=== PATIENT | male | born 1995 | race Caucasian/White ===

== ENCOUNTER 2016-07-12 17:31 | Emergency (ER) | payer OTHER ==
[~2016-07-12] VITALS: Ht 167.6 cm; Wt 60.0 kg
[~2016-07-12 17:31] MED LIST: CEPH500C PO; HYDR-3498 PO; IBUP-1542 PO
[2016-07-12 17:56] VITALS: Ht 167.6 cm; Wt 60.0 kg
[2016-07-12] MEDS ORDERED: IBUP-1542 PO (18:05)
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
== END 2016-07-12 18:09 | disposition home or self-care (01) ==
LOC: E/R 17:31
DX: Z48.02 Encounter for removal of sutures (principal)
CPT/HCPCS: 99283

== ENCOUNTER 2016-11-30 19:58 | Inpatient (IN) | payer OTHER ==
[~2016-11-30] VITALS: Ht 167.6 cm; Wt 70.0 kg
[2016-11-30] MEDS ORDERED: SOD CHLORIDE 0.9% 1,000 ML IV STA ×2 (20:24→22:40)
[2016-11-30] MEDS ORDERED: MIDAZOLAM (DRIP) 50 mg/50 mL 50 ML IV STA (20:28)
--- NOTE | 2016-11-30 20:44 | RADRPT ---
PROCEDURE: CT Brain without contrast. CLINICAL INDICATION: Trauma, loss of consciousness TECHNIQUE: A CT of the brain was performed utilizing axial imaging from the skull base through the vertex without IV contrast. Multiplanar reformatted images were made. Images were reviewed on a [employer] workstation. The CTDIvol is 32.54 mGy and the DLP is 662.3 mGycm. One or more the following dose reduction techniques were utilized: Automated exposure control, adjus tment of the mA and / or kV according to patient's size, or use of iterative reconstruction techniqu e. COMPARISON: None FINDINGS: There is no intracranial hemorrhage, mass effect, or midline shift. No extra-axial fluid collection is seen. The ventricles and sulci are normal in size and configuration. The density of the brain is normal, and the king white matter differentiation appears well-preserved. The visualized paranasal sinuses and osseous structures are grossly unremarkable. IMPRESSION: 1. No evidence of acute intracranial pathology. 2. The brain is normal in appearance. RPTAT: HJES .Richard Booker MD, MD Date Time Electronically viewed and signed by .Richard Booker MD, MD on 11/30/2016 20:44 .S/
--- NOTE | 2016-11-30 20:50 | RADRPT ---
PROCEDURE: CT Cervical Spine. CLINICAL INDICATION: Fall, neck pain TECHNIQUE: A CT of the cervical spine was performed utilizing thin section axial images from the skull base through the thoracic inlet. Sagittal and coronal reformatted images were made. The CTDI vol is 18.39 mGy and the DLP is please 361.78 mGycm. One or more the following dose reduction techniques were utilized: Automated exposure control, adjus tment of the mA and / or kV according to patient's size, or use of iterative reconstruction techniqu e. COMPARISON: None. FINDINGS: There is a normal lordosis of the cervical spine. No vertebral body subluxation is seen. No fractu res are evident. The posterior elements are normally aligned. The surrounding soft tissues are nor mal in appearance. The intervertebral discs are normal in height. No significant disk bulge or pro trusion is seen. The central canal and foramina are adequately patent at all levels. The patient is intubated. Air space infiltrates are seen at bilateral lung apices IMPRESSION: Negative CT scan of the cervical spine. Air space infiltrates at bilateral lung apices. RPTAT: HJES .Richard Booker MD, MD Date Time Electronically viewed and signed by .Richard Booker MD, MD on 11/30/2016 20:49 .S/
--- NOTE | 2016-11-30 20:51 | RADRPT ---
PROCEDURE: XR Chest. CLINICAL INDICATION: Check endotracheal tube position. TECHNIQUE: Single frontal view. COMPARISON: None. FINDINGS: The endotracheal tube is in satisfactory position with the tip 3 cm above the yazmin. The lungs are clear. The heart size is normal. There is no pleural effusion. There is no pneumothorax. IMPRESSION: 1. Endotracheal tube in satisfactory position. 2. Otherwise normal chest radiograph. RPTAT: QQ .Jacky Forte MD, MD Date Time Electronically viewed and signed by .Jacky Forte MD, MD on 11/30/2016 20:51 .R/
[2016-11-30] MEDS ORDERED: DIPHTH/TET/ACEL PERTUSS (ADULT) 0.5 ML VIAL IM* ONE (21:00)
[2016-11-30 21:02] LABS: ADD UMIC NO; UR ASCORBIC ACID NEGATIVE (NEGATIVE); UR BILIRUBIN (Dip) NEGATIVE (NEGATIVE); UR BLOOD (Dip) NEGATIVE (NEGATIVE); UR CLARITY CLEAR (CLEAR); UR COLOR STRAW (YELLOW); UR GLUCOSE (Dip) NEGATIVE (NEGATIVE); UR KETONES (Dip) NEGATIVE (NEGATIVE); UR LEUKOCYTE ESTERASE (Dip) NEGATIVE Leu/ul (NEGATIVE); UR NITRITE (Dip) NEGATIVE (NEGATIVE); UR SPECIFIC GRAVITY (Dip) 1.005 (1.003-1.030); UR TOTAL PROTEIN (Dip) NEGATIVE (NEGATIVE); UR UROBILINOGEN (Dip) NEGATIVE (NEGATIVE)
[2016-11-30] MEDS ORDERED: FENTAnyl (DRIP) 1000 mcg/100mL 100 ML IV STA (21:18)
[2016-11-30] MEDS ORDERED: FENTAnyl 50 MCG/ML VIAL ONE (21:21)
--- NOTE | 2016-11-30 21:25 | RADRPT ---
PROCEDURE: XR Chest. CLINICAL INDICATION: Check line placement. TECHNIQUE: Single frontal view. COMPARISON: 11/30/2016. FINDINGS: The endotracheal tube remains in satisfactory position. There is a new right subclavian vein cathete r with the tip in satisfactory position within the upper right atrium. There is severe diffuse bilat eral pulmonary air space disease consistent with bilateral pneumonia or pulmonary edema. There is ga seous distension of the stomach. The heart size is normal. There is no pleural effusion. There is no pneumothorax. IMPRESSION: 1. Central line in satisfactory position. 2. No pneumothorax. 3. Endotracheal tube. 4. Bilateral air space disease consistent with pulmonary edema or bilateral pneumonia. 5. Gaseous distension of the stomach. Nasogastric tube should be considered. RPTAT: QQ .Jacky Forte MD, Date Time Electronically viewed and signed by .Jacky Forte MD, on 11/30/2016 21:25 .R/
[2016-11-30] MEDS ORDERED: DEXTROSE 5%-0.45% NACL 1,000 ML IV SCH (21:26)
[2016-11-30] MEDS ORDERED: ACETAMINOPHEN 650 MG SUPP PR PRN (21:30)
[2016-11-30] MEDS ORDERED: FENTAnyl 50 MCG/ML VIAL IV ONE (21:30)
[2016-11-30 21:34] LABS: AADO2 Arterial 611.9 mmHg (7.0-24.0); Allen Test ACCEPTAB; Arterial Base Excess -16.2 mmol/L (-3.0-3); Arterial COHb 0.2 % (0.0-3.0); Arterial Fraction of Oxyhgb 78.2 % (93.0-99.0); Arterial HCO3 13.4 mmol/L (22.0-26.0); Arterial MetHb 0.4 % (0.0-1.5); Arterial Total Hemglobin 17.9 g/dl (12.0-18.0); Blood Gas Low PEEP Setting 0 cmH2O; MODE VENT - AC
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
[2016-11-30] MEDS ORDERED: CA CHLORIDE 10% 10 ML SYRINGE ONE (22:00)
[2016-11-30] MEDS ORDERED: AMIODARONE 150 MG INJ ONE (22:00)
[2016-11-30] MEDS ORDERED: ROCURONIUM 50 MG INJ ONE (22:00)
[2016-11-30] MEDS ORDERED: NORepinephrine 8MG/250 ML BAG ONE (22:00)
[2016-11-30] MEDS ORDERED: EPINEPHrine 0.1 MG/ML SYG ONE (22:00)
[2016-11-30] MEDS ORDERED: SOD CHLORIDE 0.9% 100 ML ONE (22:15)
[2016-11-30] MEDS ORDERED: IOHEXOL 300MG/ML 150 ML BTL ONE (22:15)
[2016-11-30] MEDS ORDERED: MAGNESIUM SULFATE 1 GM/D5W 100 ML IVPB ONE (22:30)
[2016-11-30] MEDS ORDERED: NA BICARBONATE 8.4% 50 ML SYG IV ONE (22:30)
[2016-11-30] MEDS ORDERED: MAGNESIUM SULFATE 1 GM/D5W 100 ML ONE (22:48)
[2016-11-30] MEDS ORDERED: NA BICARBONATE 8.4% 50 ML SYG ONE (22:48)
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
[2016-11-30] MEDS ORDERED: niCARdipine-NS 0.1MG/ML DRIP 200 ML ONE (23:21)
[2016-11-30] MEDS ORDERED: niCARdipine-NS 0.1MG/ML DRIP 200 ML IV SCH (23:30)
[2016-11-30 23:35] LABS: HEMATOCRIT 46.9 % (42.0-52.0); HEMOGLOBIN 15.3 g/dl (14.0-18.0); MEAN CORPUSCULAR HEMOGLOBIN 28.4 pg (29.0-33.0); MEAN CORPUSCULAR HGB CONC 32.6 g/dl (32.0-37.0); MEAN CORPUSCULAR VOLUME 87.2 fl (82.0-101.0); PLATELET COUNT 224 10^3/UL (140-440); RED BLOOD COUNT 5.38 10^6/ul (4.70-6.10); RED CELL DISTRIBUTION WIDTH 13.9 % (11.5-14.5); WHITE BLOOD COUNT 10.6 10^3/ul (4.8-10.8)
[2016-11-30 23:36] LABS: MEAN PLATELET VOLUME 11.1 fl (7.4-10.4)
[2016-11-30 23:45] LABS: INR 0.95; PROTIME 12.7 Sec (12.2-14.2)
[2016-11-30 23:46] LABS: ALBUMIN 5.3 g/dl (3.3-4.9); ALBUMIN/GLOBULIN RATIO 1.55; BILIRUBIN,INDIRECT 0.3 mg/dl (0-1.1); BILIRUBIN,TOTAL 0.3 mg/dl (0.2-1.3); CALCIUM 9.6 mg/dl (8.4-10.2); CREATININE 0.94 mg/dl (0.61-1.24); POTASSIUM 4.9 mmol/L (3.5-5.1); TOTAL PROTEIN 8.7 g/dl (6.1-8.1)
[2016-11-30 23:48] LABS: TROPONIN-I 0.636 ng/ml (0.00-0.12)
[2016-12-01] VITALS (84 sets, daily range): BP systolic 74–145; BP diastolic 36–107; PULSE 86–125; RESP 0–30; TEMP 98.3; Ht 167.6 cm; Wt 70.0 kg
[2016-12-01 00:06] LABS: BARBITURATES Negative (NEGATIVE); BENZODIAZEPINES Negative (NEGATIVE); CANNABINOIDS Positive (NEGATIVE); COCAINE Negative (NEGATIVE); OPIATES Negative (NEGATIVE)
[2016-12-01] MEDS ORDERED: PIPER-TAZO 3.375 GM IV (PMX) 100 ML IVPB ONE (00:30)
[2016-12-01 01:16] LABS: LYMPHOCYTES # 7.3 10^3/ul (0.8-2.9); MONOCYTE # 0.5 10^3/ul (0.3-0.9); MONOCYTES % (M) 5 % (0-11)
[2016-12-01 01:17] LABS: PLATELET ESTIMATE NORMAL
[2016-12-01 01:43] LABS: AADO2 Arterial 627.4 mmHg (7.0-24.0); Allen Test ACCEPTAB; Arterial Base Excess -15.8 mmol/L (-3.0-3); Arterial COHb 0.1 % (0.0-3.0); Arterial Fraction of Oxyhgb 67.5 % (93.0-99.0); Arterial MetHb 0.3 % (0.0-1.5); Arterial Total Hemglobin 16.4 g/dl (12.0-18.0); MODE VENT - AC
--- NOTE | 2016-12-01 01:59 | EN ---
Date/Time of Note Date/Time of Note DATE: 12/01/16 TIME: 01:55 ER Progress Note This patients heart rate gradually declined until she he went asystolic. CPR started by the emergency department nursing team. Patient was given a milligram of epinephrine. The patient had a fair amount of blood in the ET tube and in the ventilation tubing system. The patient was suctioned immediately and about 100 cc of blood was returned once that happened the patient's pulse returned instantaneously. The patient's heart rate is 115. Blood pressure is 90/45. Patient likely had excessive bloody fluid in his airway causing some hypoxia. We will get chest x-ray LAINA RANGEL DO Dec 01, 2016 01:59
[2016-12-01] MEDS ORDERED: NA BICARBONATE 8.4% 50 ML SYG IV ONE (02:00)
[2016-12-01] MEDS ORDERED: NORepinephrine 8MG/250 ML (PMX 0 ML ONE (03:34)
[2016-12-01] MEDS ORDERED: PROPOFOL 100 ML ONE (03:35)
[2016-12-01] MEDS: PROPOFOL 100 ML IV SCH (03:41)
[2016-12-01] MEDS ORDERED: PHENYLephrine 20MG IN 250 ML 250 ML ONE (03:55)
[2016-12-01] MEDS: NORepinephrine 8MG/250 ML (PMX 250 ML IV SCH ×2 (03:58→08:30)
[2016-12-01] MEDS ORDERED: SOD CHLORIDE 0.9% 1,000 ML IV ONE ×2 (04:00→13:00)
[2016-12-01] MEDS: MIDAZOLAM (DRIP) 50 mg/50 mL 50 ML IV SCH ×4 (04:06→20:38)
[2016-12-01] MEDS: PHENYLephrine 20MG IN 250 ML 250 ML IV SCH ×4 (04:07→08:36)
[2016-12-01] MEDS: FENTAnyl (DRIP) 1000 mcg/100mL 100 ML IV SCH ×2 (05:07→15:55)
[2016-12-01 05:31] LABS: AADO2 Arterial 608.6 mmHg (7.0-24.0); Arterial Base Excess -10.6 mmol/L (-3.0-3); Arterial COHb 0.4 % (0.0-3.0); Arterial Fraction of Oxyhgb 91.7 % (93.0-99.0); Arterial HCO3 14.7 mmol/L (22.0-26.0); Arterial MetHb 0.5 % (0.0-1.5); Arterial Total Hemglobin 14.8 g/dl (12.0-18.0); MODE VENT - PC
[2016-12-01 06:05] LABS: ABNORMAL IP MESSAGE 1; HEMOGLOBIN 14.4 g/dl (14.0-18.0); MEAN CORPUSCULAR HEMOGLOBIN 28.4 pg (29.0-33.0); MEAN CORPUSCULAR HGB CONC 32.7 g/dl (32.0-37.0); MEAN CORPUSCULAR VOLUME 86.8 fl (82.0-101.0); MEAN PLATELET VOLUME 10.4 fl (7.4-10.4); PLATELET COUNT 148 10^3/UL (140-415); POSITIVE DIFF @See below; RED BLOOD COUNT 5.07 10^6/ul (4.70-6.10)
[2016-12-01] MEDS ORDERED: VANCOMYCIN IV PER PHARMACY XX SCH (06:30)
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
[2016-12-01 06:41] LABS: ALBUMIN 2.9 g/dl (3.3-4.9); ALBUMIN/GLOBULIN RATIO 1.26; BILIRUBIN,INDIRECT 0.6 mg/dl (0-1.1); BILIRUBIN,TOTAL 0.6 mg/dl (0.2-1.3); CALCIUM 7.4 mg/dl (8.4-10.2); CREATININE 1.61 mg/dl (0.61-1.24); MAGNESIUM 1.9 mg/dl (1.7-2.5); POTASSIUM 3.7 mmol/L (3.5-5.1); TOTAL PROTEIN 5.2 g/dl (6.1-8.1)
[2016-12-01] MEDS: PIPER-TAZO 3.375 GM IV (PMX) 100 ML IVPB SCH ×2 (06:56→11:47)
[2016-12-01] MEDS ORDERED: VANCOMYCIN 1.5 GM in SOD CHLORIDE 0.9% 250 ML IVPB ONE (08:00)
[2016-12-01 08:09] LABS: CHOL/HDL RATIO 3.6 RATIO
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
--- NOTE | 2016-12-01 08:39 | RADRPT ---
PROCEDURE: XR Chest. CLINICAL INDICATION: Respiratory failure TECHNIQUE: A single AP view of the chest was obtained. COMPARISON: Chest x-ray dated 12/01/2016 FINDINGS: The endotracheal tube tip is approximately 2.4 cm above the yazmin. There is a right subclavian ce ntral venous catheter with tip near the cavoatrial junction. There are diffuse bilateral alveolar opacities. No pleural effusion or pneumothorax is seen. The ca rdiomediastinal silhouette is within normal limits for size. The osseous structures are unremarkabl e. IMPRESSION: 1. Diffuse bilateral alveolar opacities may reflect pulmonary edema/ARDS or multifocal pneumonia. L dawna aeration is mildly improved when compared to the prior examination. 2. Tubes and lines, as described above. RPTAT: HH .Yessenia Piper MD, MD Date Time Electronically viewed and signed by .Yessenia Piper MD, on 12/01/2016 05:41 .G/
[2016-12-01 08:46] LABS: CK-MB 55.3 ng/ml (0.0-2.4); TROPONIN-I 49.6 ng/ml (0.00-0.12)
[2016-12-01 09:14] LABS: HAAIG REFLEX REFLEX FILED
[2016-12-01 09:22] LABS: ANISOCYTOSIS 1+ (0-0); MICROCYTOSIS 1+ (0-0); MONOCYTES % (M) 6 % (0-11); PLATELET ESTIMATE NORMAL; REACTIVE LYMPHOCYTES% (M) 2 % (0-0)
[2016-12-01] MEDS ORDERED: LORAZEPAM 2 MG INJ IV PRN (09:30)
[2016-12-01] MEDS ORDERED: ALBUTEROL/IPRATROPIUM (NEB) 3 ML AMP HHN PRN (10:00)
[2016-12-01 10:04] LABS: AADO2 Arterial 583.7 mmHg (7.0-24.0); Allen Test ACCEPTAB; Arterial Base Excess -12.5 mmol/L (-3.0-3); Arterial COHb 0.3 % (0.0-3.0); Arterial HCO3 11.1 mmol/L (22.0-26.0); Arterial MetHb 0.4 % (0.0-1.5); Arterial Total Hemglobin 15.4 g/dl (12.0-18.0); MODE VENT - PC
[2016-12-01] MEDS: PHENYLephrine 40 MG in DEXTROSE 5% 496 ML IV SCH ×2 (10:58→15:05)
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
[2016-12-01] MEDS: FAMOTIDINE 20 MG INJ IV SCH (11:08)
[2016-12-01] MEDS: LORAZEPAM 2 MG INJ IV PRN ×3 (11:24→22:54)
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
--- NOTE | 2016-12-01 11:44 | EN ---
Date/Time of Note Date/Time of Note DATE: 12/01/16 TIME: 11:43 Event Note Medicine Medicine Event Note Of note, there is no known diagnosis of pulmonary embolism, so please disregard that from internal medicine progress note from today, thank you. OBDULIA ESCOBEDO Dec 01, 2016 11:44
[2016-12-01 12:03] LABS: AMMONIA < 9 umol/l (9-30)
[2016-12-01 12:06] LABS: LACTIC ACID 5.8 mmol/L (0.5-2.0)
[2016-12-01] MEDS ORDERED: SODIUM BICARBONATE (IV ADD) 50 MEQ in DEXTROSE 5%-0.45% NACL 1,000 ML IV SCH (12:30)
[2016-12-01] MEDS ORDERED: [UNRECOGNIZED DRUG - REMARK] XX SCH (12:30)
[2016-12-01] MEDS: METHYLPREDNISOLONE 40 MG INJ IV SCH ×2 (12:37→17:33)
[2016-12-01 12:54] LABS: CK-MB 59.6 ng/ml (0.0-2.4)
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
[2016-12-01] MEDS: SODIUM BICARBONATE (IV ADD) 150 MEQ in DEXTROSE 5%-0.45% NACL 850 ML IV SCH ×2 (13:47→20:43)
--- NOTE | 2016-12-01 13:50 | RADRPT ---
PROCEDURE: Renal US. CLINICAL INDICATION: Renal dysfunction. TECHNIQUE: Multiple sonographic images of the kidneys and urinary bladder were obtained. The imag es were reviewed on a PACS workstation. COMPARISON: CT scan of the abdomen and pelvis dated 11/30/2016. FINDINGS: The right kidney measures 9.4 x 3.7 x 3.9 cm. The left kidney measures 8.9 x 4.1 x 4.5 cm. There is no renal mass. There is no hydronephrosis. There is no renal calculus. Renal parenchymal thickness is normal bilaterally. Echogenicity is normal bilaterally. The perirenal regions are normal with no fluid collection or mass. There is a Li catheter in the urinary bladder. IMPRESSION: 1. Li catheter in the bladder. 2. Otherwise unremarkable renal ultrasound. RPTAT: QQ .Jacky Forte MD, Date Time Electronically viewed and signed by .Jacky Forte MD, on 12/01/2016 13:49 .R/
--- NOTE | 2016-12-01 14:00 | RADRPT ---
Echocardiogram Report Patient Name: ASHVIN BRAXTON Gender: Male Date: 1995 Study Date: 01-Dec-2016 Refrigerating Engineer Head: Kay Nation RDCS Location: 115 Ref. Physician: ESME COX Quality: Adequate Procedures: Transthoracic echocardiogram with complete 2D, M-Mode, and doppler examination. Indications: Positive troponin. 2D/M Mode Doppler Measurement Value Normal Ranges Measurement Value Normal Ranges LVIDd 2D 4.0 3.5 - 5.6 cm AV Peak Sony 0.8 m/sec LVIDs 2D 3.5 2.1 - 4.1 cm AV Peak PG 2.5 mmHg LVPWd 2D 0.9 0.6 - 1.1 cm LVOT Peak Sony 0.5 m/sec IVSd 2D 0.8 0.6 - 1.1 cm LVOT Peak PG 0.9 mmHg AoR Diam 2D 2.3 2.0 - 3.7 cm MV E Peak Sony 0.5 m/sec EDV 2D 69.1 cm3 MV A Peak Sony 0.4 m/sec ESV 2D 41.4 cm3 MV E/A 1.3 LA Dimen 2D 2.5 2.3 - 4.0 cm MV Decel Time 103 msec MV Decel Riley 5 MV E/A 1.3 TR Peak Sony 1.6 m/sec TR Peak PG 10.3 mmHg RVSP 18.0 mmHg Findings Left Ventricle: Normal left ventricular cavity size. Normal left ventricular wall thickness. Severe global left ventricular systolic dysfunction. Ejection fraction is visually estimated at 20 %. Right Ventricle: Normal right ventricular size. Severe right ventricular hypokinesis. Left Atrium: The left atrium is normal in size. Right Atrium: The right atrium is normal in size. Mitral Valve: Normal appearance and function of the mitral valve with trace physiologic regurgitation. Aortic Valve: Normal appearance of the aortic valve. No significant aortic stenosis or insufficiency. Tricuspid Valve: Normal appearance of the tricuspid valve. Estimated peak PA systolic pressure 18 mmHg. There is trace tricuspid regurgitation. Pulmonic Valve: Normal pulmonic valve appearance. Pericardium: Normal pericardium with no significant pericardial effusion. Aorta: Normal aortic root. IVC: Inferior vena cava without respiratory collapse, however, patient on ventilator. Conclusions 1.The left ventricle is normal in size with severely reduced systolic function. 2.Estimated left ventricular ejection fraction of 20%. Electronically Signed By: Kenton Hya 01-Dec-2016 14:00:03 0700 Patient Name: ASHVIN BRAXTON Study Date: 01-Dec-2016 [id number]
[2016-12-01 14:07] LABS: HEPATITIS B CORE ANTIBODY NEGATIVE (NEGATIVE)
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
[2016-12-01 15:17] LABS: POTASSIUM,URINE RANDOM 44.3 mmol/L (25-125)
[2016-12-01] MEDS: VASOPRESSIN 60 UNIT in DEXTROSE 5% 57 ML IV SCH (15:30)
[2016-12-01] MEDS: CEFEPIME 2GM/50 ML (PMX) 50 ML IVPB SCH (15:53)
[2016-12-01] MEDS ORDERED: VANCOMYCIN 1 GM in NS 250 ML IVPB SCH (16:00)
[2016-12-01] MEDS: morphine 2 MG INJ IV PRN (16:08)
[2016-12-01 16:31] LABS: AADO2 Arterial 606.2 mmHg (7.0-24.0); Allen Test ACCEPTAB; Arterial Base Excess -11.4 mmol/L (-3.0-3); Arterial COHb 0.3 % (0.0-3.0); Arterial Fraction of Oxyhgb 94.3 % (93.0-99.0); Arterial HCO3 13.1 mmol/L (22.0-26.0); Arterial MetHb 0.4 % (0.0-1.5); Arterial Total Hemglobin 14.7 g/dl (12.0-18.0); MODE VENT - PC
[2016-12-01 19:26] LABS: PROTEIN/CREAT RATIO 0.56 RATIO
[2016-12-01] MEDS ORDERED: VANCOMYCIN 750 MG in SOD CHLORIDE 0.9% 150 ML IVPB SCH (21:00)
[2016-12-01] MEDS: ALBUTEROL 18 GM INHALER INH PRN (23:43)
[2016-12-01] MEDS: IPRATROPIUM (HFA) 12.9 GM INHALER INH PRN (23:43)
[2016-12-02] VITALS (91 sets, daily range): BP systolic 81–124; BP diastolic 47–94; PULSE 43–126; RESP 0–30
[2016-12-02] MEDS: CEFEPIME 2GM/50 ML (PMX) 50 ML IVPB SCH ×3 (00:20→20:18)
[2016-12-02] MEDS: METHYLPREDNISOLONE 40 MG INJ IV SCH ×4 (00:20→17:36)
[2016-12-02] MEDS: VASOPRESSIN 60 UNIT in DEXTROSE 5% 57 ML IV SCH ×2 (00:28→19:00)
[2016-12-02] MEDS: FENTAnyl (DRIP) 1000 mcg/100mL 100 ML IV SCH ×3 (01:07→20:07)
[2016-12-02] MEDS: MIDAZOLAM (DRIP) 50 mg/50 mL 50 ML IV SCH ×5 (01:26→21:52)
[2016-12-02] MEDS: PHENYLephrine 40 MG in DEXTROSE 5% 496 ML IV SCH (01:28)
[2016-12-02] MEDS: LORAZEPAM 2 MG INJ IV PRN ×3 (01:58→22:14)
[2016-12-02] MEDS: SODIUM BICARBONATE (IV ADD) 150 MEQ in DEXTROSE 5%-0.45% NACL 850 ML IV SCH (04:38)
[2016-12-02] MEDS: ALBUTEROL 18 GM INHALER INH PRN (04:49)
[2016-12-02] MEDS: IPRATROPIUM (HFA) 12.9 GM INHALER INH PRN (04:49)
[2016-12-02 05:41] LABS: ABNORMAL IP MESSAGE 1; BASOPHILS % 0.2 % (0.0-2.0); HEMATOCRIT 37.3 % (42.0-52.0); HEMOGLOBIN 12.8 g/dl (14.0-18.0); LYMPHOCYTES # 1.2 10^3/ul (0.8-2.9); MEAN CORPUSCULAR HEMOGLOBIN 28.2 pg (29.0-33.0); MEAN CORPUSCULAR HGB CONC 34.3 g/dl (32.0-37.0); MEAN CORPUSCULAR VOLUME 82.2 fl (82.0-101.0); MEAN PLATELET VOLUME 11.6 fl (7.4-10.4); MONOCYTE # 0.7 10^3/ul (0.3-0.9); MONOCYTES % 2.8 % (0.0-11.0); NEUTROPHIL # 21.7 10^3/ul (1.6-7.5); NEUTROPHILS % 90.9 % (39.0-77.0); PLATELET COUNT 132 10^3/UL (140-415); POSITIVE DIFF @See below; RED BLOOD COUNT 4.54 10^6/ul (4.70-6.10); RED CELL DISTRIBUTION WIDTH 13.6 % (11.5-14.5); WHITE BLOOD COUNT 23.9 10^3/ul (4.8-10.8)
[2016-12-02 05:57] LABS: ALBUMIN 3.4 g/dl (3.3-4.9); TOTAL PROTEIN 5.5 g/dl (6.1-8.1)
[2016-12-02 06:00] LABS: CREATININE 1.1 mg/dl (0.61-1.24)
[2016-12-02 06:15] LABS: MAGNESIUM 1.4 mg/dl (1.7-2.5); PHOSPHORUS 0.6 mg/dl (2.5-4.9)
[2016-12-02] MEDS ORDERED: POTASSIUM PHOSPHATE 30 MM in SOD CHLORIDE 0.9% 250 ML IVPB STA (08:15)
[2016-12-02] MEDS ORDERED: MAGNESIUM SULFATE 2 GM/50 ML 50 ML IVPB STA (08:15)
[2016-12-02 08:28] LABS: CALCIUM 8.4 mg/dl (8.4-10.2); CREATININE 1.08 mg/dl (0.61-1.24); POTASSIUM 3.3 mmol/L (3.5-5.1)
[2016-12-02 08:36] LABS: AADO2 Arterial 204.8 mmHg (7.0-24.0); Allen Test ACCEPTAB; Arterial Base Excess 0.8 mmol/L (-3.0-3); Arterial COHb 0.3 % (0.0-3.0); Arterial Fraction of Oxyhgb 98.7 % (93.0-99.0); Arterial HCO3 17.6 mmol/L (22.0-26.0); Arterial MetHb 0.4 % (0.0-1.5); Arterial Total Hemglobin 12.9 g/dl (12.0-18.0); MODE VENT - PC
[2016-12-02] MEDS: MULTIVITAMINS 10 ML, THIAMINE 100 MG in SOD CHLORIDE 0.9% 1,000 ML IVPB SCH (08:56)
[2016-12-02] MEDS ORDERED: VANCOMYCIN 750 MG in DEXTROSE 5% 150 ML IVPB SCH (09:00)
[2016-12-02] MEDS ORDERED: MULTIVITAMINS 10 ML, THIAMINE 100 MG, FOLIC ACID 1 MG in SOD CHLORIDE 0.9% 1,000 ML IVPB SCH (09:00)
[2016-12-02] MEDS: FAMOTIDINE 20 MG INJ IV SCH ×2 (09:28→20:18)
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
--- NOTE | 2016-12-02 09:29 | RADRPT ---
PROCEDURE: XR Chest. CLINICAL INDICATION: Shortness of breath. TECHNIQUE: Single frontal view. COMPARISON: 12/01/2016. FINDINGS: The endotracheal tube and right subclavian vein catheter remain in satisfactory position. A nasogast alyx tube has been inserted with the tip in the stomach. There is bilateral pulmonary airspace and in terstitial disease, improved. The heart size is normal. There is no pleural effusion. There is no pneumothorax. IMPRESSION: 1. Nasogastric tube inserted in satisfactory position. 2. Improved appearance of the lungs. 3. No other change from 12/01/2016. RPTAT: QQ .Jacky Forte MD, MD Date Time Electronically viewed and signed by .Jacky Forte MD, on 12/02/2016 09:29 .R/
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
[2016-12-02] MEDS ORDERED: VANCOMYCIN 750 MG in SOD CHLORIDE 0.9% 150 ML IVPB SCH ×3 (11:00→21:00)
[2016-12-02 11:23] LABS: AADO2 Arterial 185.1 mmHg (7.0-24.0); Allen Test ACCEPTAB; Arterial Base Excess -0.2 mmol/L (-3.0-3); Arterial COHb 0.3 % (0.0-3.0); Arterial MetHb 0.5 % (0.0-1.5); Arterial Total Hemglobin 12.5 g/dl (12.0-18.0); MODE VENT - AC
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
--- NOTE | 2016-12-02 15:09 | CONS ---
Date/Time of Note Date/Time of Note DATE: 12/02/16 TIME: 15:05 Assessment/Plan Assessment/Plan Chief Complaint/Hosp Course Assessment: NSTEMI - likely due to cardiac arrest and CPR Acute systolic heart failure - LVEF 20% Status post PEA cardiac arrest Shock - improving Acute encephalopathy - possible traumatic brain injury, possible anoxic brain injury, follow up neurology and neurosurgery Acute hypoxic respiratory failure - intubated and on mechanical ventilation Acute kidney injury - improving Shock liver Recommendations: -wean pressors as tolerated -will repeat echocardiogram in a few days to evaluate for recovery of left ventricular systolic function Problems: Consultation Date/Type/Reason Admit Date/Time Nov 30, 2016 at 21:17 Initial Consult Date 12/01/16 Type of Consultation: Cardiology 24 HR Interval Summary Free Text/Dictation Pressor requirements significantly decreased, now only on Levophed 5mcg/min. FiO2 down to 50%. Reportedly following simple commands. Detailed Summary Additional Comments Unable to obtain review of systems, patient is intubated and sedated. Exam/Review of Systems Vital Signs Vitals Vital Signs Date Time Temp Pulse Resp B/P Pulse Ox O2 Delivery O2 Flow Rate FiO2 12/02/16 10:30 96 16 90/53 96 12/02/16 10:00 Mechanical Ventilator 12/02/16 09:00 50 12/02/16 08:00 99.5 11/30/16 20:23 15.0 Intake and Output 12/01/16 12/01/16 12/02/16 15:00 23:00 07:00 Intake Total 2918.40 ml 826.25 ml 1202.23 ml Output Total 660 ml 2150 ml 1515 ml Balance 2258.40 ml -1323.75 ml -312.77 ml Exam Constitutional: non-verbal, No alert Psych: No nl mood/affect, No no complaints Head: lacerations (forehead) Eyes: nl conjunctiva, nl lids ENMT: nl external ears & nose, nl nasal mucosa & septum Respiratory: diminished breath sounds, No wheezing Cardiovascular: No murmurs/extra sounds, No regular rate and rhythm Gastrointestinal: soft, No distended Musculoskeletal: nl extremities to inspection Extremities: No clubbing, No cyanosis, No edema Neurological: No nl mental status, No nl speech Skin: laceration Results Result Diagram: 12/02/16 0400 12/02/16 0700 Results 24 hrs Laboratory Tests Test 12/01/16 16:00 12/01/16 17:41 12/02/16 00:46 12/02/16 04:00 Blood Gas Specimen Source Blood arterial Arterial Blood Date Drawn 12/01/2016 4:15:27 PM Arterial Blood pH (Temp corrected) 7.309 L Arterial Blood pCO2 (Temp correct) 26.7 L Arterial Blood pO2 (Temp corrected) 80.1 Arterial Blood HCO3 13.1 L Arterial Blood Base Excess -11.4 L Arterial Blood Oxygen Saturation 95.0 Otto Test ACCEPTAB Arterial Blood Gas Puncture Site Left Radial Arterial Blood Carboxyhemoglobin 0.3 Arterial Blood Methemoglobin 0.4 Blood Gas A-a O2 Differential 606.2 H Oxyhemoglobin Percent 94.3 Total Hemoglobin 14.7 Blood Gas Temperature 37.0 Blood Gas Respiration Rate 30.0 Blood Gas Actual Respiration Rate 30 Blood Gas Modality VENT - PC FiO2 100.0 Blood Gas Low PEEP Setting 10.0 Blood Gas Critical Value Read Back G MICHELLE RN Blood Gas Notified Whom AC Blood Gas Notified Time 12/01/2016 4:30:54 PM Lactic Acid Level 5.6 *H 6.1 *H Creatine Kinase 77425 H Troponin I 18.800 *H 9.510 *H White Blood Count 23.9 H Red Blood Count 4.54 L Hemoglobin 12.8 L Hematocrit 37.3 L Mean Corpuscular Volume 82.2 Mean Corpuscular Hemoglobin 28.2 L Mean Corpuscular Hemoglobin Concent 34.3 Red Cell Distribution Width 13.6 Platelet Count 132 L Mean Platelet Volume 11.6 H Neutrophils % 90.9 H Lymphocytes % 5.0 L Monocytes % 2.8 Eosinophils % 0.0 Basophils % 0.2 Nucleated Red Blood Cells % 0.0 Neutrophils # 21.7 H Lymphocytes # 1.2 Monocytes # 0.7 Eosinophils # 0.0 Basophils # 0.0 Nucleated Red Blood Cells # 0.0 Blood Urea Nitrogen 12 Creatinine 1.10 Uric Acid 4.5 Phosphorus Level 0.6 L Magnesium Level 1.4 L Total Bilirubin 1.0 Direct Bilirubin 0.00 Indirect Bilirubin 1.0 Aspartate Amino Transf (AST/SGOT) 1214 H Alanine Aminotransferase (ALT/SGPT) 738 H Alkaline Phosphatase 49 Total Protein 5.5 L Albumin 3.4 Test 12/02/16 07:00 12/02/16 08:15 12/02/16 09:40 12/02/16 11:00 Sodium Level 143 Potassium Level 3.3 L Chloride Level 110 Carbon Dioxide Level 25 Anion Gap 11 # Blood Urea Nitrogen 12 Creatinine 1.08 Glucose Level 142 Lactic Acid Level 6.0 *H Calcium Level 8.4 Blood Gas Specimen Source Blood arterial Blood arterial Arterial Blood Date Drawn 12/02/2016 8:20:20 AM 12/02/2016 11:10:06 AM Arterial Blood pH (Temp corrected) 7.711 *H 7.384 Arterial Blood pCO2 (Temp correct) 14.2 L 42.8 Arterial Blood pO2 (Temp corrected) 494.0 H 123.3 H Arterial Blood HCO3 17.6 L 25.0 Arterial Blood Base Excess 0.8 -0.2 Arterial Blood Oxygen Saturation 99.4 H 97.8 Otto Test ACCEPTAB ACCEPTAB Arterial Blood Gas Puncture Site Right Radial Right Radial Arterial Blood Carboxyhemoglobin 0.3 0.3 Arterial Blood Methemoglobin 0.4 0.5 Blood Gas A-a O2 Differential 204.8 H 185.1 H Oxyhemoglobin Percent 98.7 97.0 Total Hemoglobin 12.9 12.5 Blood Gas Temperature 37.0 37.0 Blood Gas Respiration Rate 30.0 16.0 Blood Gas Actual Respiration Rate 30 16 Blood Gas Modality VENT - PC VENT - AC FiO2 100.0 50.0 Blood Gas Low PEEP Setting 10.0 5.0 Blood Gas Inspiratory Pressure 36.0 Blood Gas Critical Value Read Back G PERLAUBA RN Blood Gas Notified Whom MARTINEZ HENRIQUEZ Blood Gas Notified Time 12/02/2016 8:36:10 AM 12/02/2016 11:23:02 AM Creatine Kinase 29647 H Blood Gas Tidal Volume 450.0 Test 12/02/16 11:49 Lactic Acid Level 2.4 *H Medications Medications Current Medications Acetaminophen (Tylenol Supp) 650 mg Q4H PRN [place] PAIN LEVEL 1-3 OR FEVER; Start 11/30/16 at 21:30 Morphine Sulfate (morphine) 2 mg Q4H PRN IV PAIN LEVEL 7-10 Last administered on 12/01/16 16:08; Admin Dose 2 MG; Start 11/30/16 at 21:30 Lorazepam 1 mg 1 mg Q2H PRN IV ANXIETY Last administered on 12/02/16 05:49; Admin Dose 1 MG; Start 11/30/16 at 21:30 Norepinephrine 16 mg/Dextrose 500 ml @ 1.87 mls/hr TITRATE IV Last administered on 12/01/16 22:52; Admin Dose 15 MLS/HR; Start 12/01/16 at 10:00 Midazolam HCl 50 ml @ 1 mls/hr TITRATE IV Last administered on 12/02/16 11:00 ; Admin Dose 10 MLS/HR; Start 12/01/16 at 04:00 Fentanyl 100 ml @ 2.5 mls/hr TITRATE IV Last administered on 12/02/16 11:00 ; Admin Dose 10 MLS/HR; Start 12/01/16 at 04:00 Phenylephrine HCl/ Dextrose (Roland-Syneph/D5W) 500 ml @ 75 mls/hr TITRATE IV Last administered on 12/02/16 01:28; Admin Dose 15 MLS/HR; Start 12/01/16 at 10:00 Lorazepam (Ativan) 1 mg Q1H PRN IV CONTROL WITHDRAWAL SYMPTOMS; Start at 09:30 Famotidine 20 mg 20 mg DAILY IV Last administered on 12/02/16 09:28; Admin Dose 20 MG; Start 12/01/16 at 09:30 Multivitamins/ Thiamine HCl/ Sodium Chloride (Mvi Adult/ Vitamin B1/NS) 1,011 ml @ 125 mls/hr DAILY@09 IVPB Last administered on 12/02/16 08:56; Admin Dose 125 MLS/HR; Start 12/02/16 at 09:00 Methylprednisolone Sodium Succinate 40 mg 40 mg Q6 IV Last administered on 12:51; Admin Dose 40 MG; Start 12/01/16 at 12:30 Vasopressin 60 unit/Dextrose 60 ml @ 2.4 mls/hr Q12H IV ; Start 12/01/16 at 15 :30; Stop 12/06/16 at 15:29 Cefepime HCl 50 ml @ 100 mls/hr Q12 IVPB Last administered on 12/02/16 09:28 ; Admin Dose 100 MLS/HR; Start 12/01/16 at 15:30 Potassium Chloride/Dextrose/ Sod Cl 1,000 ml @ 100 mls/hr Q10H IV ; Start at 11:00 Vancomycin HCl/ Sodium Chloride (Vancocin/NS) 150 ml @ 75 mls/hr Q8H IVPB ; Start 12/02/16 at 17:00; Stop 12/03/16 at 10:59 Miscellaneous Information VANCO TROUGH @ 0,000 ON ... ONCE ONCE XX ; Start at 00:00; Stop 12/03/16 at 00:01 Vancomycin HCl/ Dextrose/Water (Vancocin/D5W) 150 ml @ 75 mls/hr Q8H IVPB ; Start 12/03/16 at 17:00 RAYNA ROJAS MD Dec 02, 2016 15:09
[2016-12-02] MEDS: D5W-0.45 NACL + KCL 10 MEQ 1,000 ML IV SCH ×2 (17:35→21:00)
[2016-12-03] VITALS (92 sets, daily range): BP systolic 90–130; BP diastolic 53–89; PULSE 57–113; RESP 3–26
[2016-12-03] MEDS: METHYLPREDNISOLONE 40 MG INJ IV SCH ×3 (01:08→20:30)
[2016-12-03] MEDS: VANCOMYCIN 1 GM in NS 250 ML IVPB SCH ×3 (02:46→18:32)
[2016-12-03] MEDS: MIDAZOLAM (DRIP) 50 mg/50 mL 50 ML IV SCH ×4 (03:18→20:30)
[2016-12-03] MEDS: D5W-0.45 NACL + KCL 10 MEQ 1,000 ML IV SCH ×2 (03:18→18:33)
[2016-12-03] MEDS: VASOPRESSIN 60 UNIT in DEXTROSE 5% 57 ML IV SCH ×2 (03:18→15:30)
[2016-12-03 04:52] LABS: ABNORMAL IP MESSAGE 1; BASOPHILS % 0.1 % (0.0-2.0); HEMATOCRIT 33.1 % (42.0-52.0); HEMOGLOBIN 10.7 g/dl (14.0-18.0); LYMPHOCYTES # 0.4 10^3/ul (0.8-2.9); LYMPHOCYTES % 1.9 % (15.0-51.0); MEAN CORPUSCULAR HEMOGLOBIN 28.2 pg (29.0-33.0); MEAN CORPUSCULAR HGB CONC 32.3 g/dl (32.0-37.0); MEAN CORPUSCULAR VOLUME 87.3 fl (82.0-101.0); MEAN PLATELET VOLUME 11.6 fl (7.4-10.4); MONOCYTE # 0.4 10^3/ul (0.3-0.9); MONOCYTES % 1.9 % (0.0-11.0); NEUTROPHIL # 21.3 10^3/ul (1.6-7.5); NEUTROPHILS % 93.5 % (39.0-77.0); POSITIVE DIFF @See below; RED BLOOD COUNT 3.79 10^6/ul (4.70-6.10); RED CELL DISTRIBUTION WIDTH 14.4 % (11.5-14.5); WHITE BLOOD COUNT 22.8 10^3/ul (4.8-10.8)
[2016-12-03 05:02] LABS: PLATELET COUNT 97 10^3/UL (140-415)
[2016-12-03 05:10] LABS: MAGNESIUM 2.1 mg/dl (1.7-2.5); PHOSPHORUS 2.9 mg/dl (2.5-4.9)
[2016-12-03 05:10] LABS: CREATININE 0.83 mg/dl (0.61-1.24)
[2016-12-03] MEDS: FENTAnyl (DRIP) 1000 mcg/100mL 100 ML IV SCH ×3 (05:48→21:56)
[2016-12-03 07:52] LABS: ALBUMIN/GLOBULIN RATIO 1.5; BILIRUBIN,INDIRECT 0.3 mg/dl (0-1.1); BILIRUBIN,TOTAL 0.3 mg/dl (0.2-1.3); CALCIUM 7.8 mg/dl (8.4-10.2); CREATININE 0.85 mg/dl (0.61-1.24); POTASSIUM 4.6 mmol/L (3.5-5.1)
--- NOTE | 2016-12-03 08:29 | RADRPT ---
PROCEDURE: XR Chest. CLINICAL INDICATION: Shortness of breath. TECHNIQUE: Single frontal view. COMPARISON: 12/02/2016. FINDINGS: The endotracheal tube, nasogastric tube, and right subclavian vein catheter remain in satisfactory p osition. There is extensive bilateral pulmonary airspace and interstitial disease, unchanged. The heart size is normal. There is no pleural effusion. There is no pneumothorax. IMPRESSION: 1. No change from 12/02/2016. RPTAT: QQ .Jacky Forte MD, Date Time Electronically viewed and signed by .Jacky Forte MD, MD on 12/03/2016 08:29 .R/
[2016-12-03] MEDS: CEFEPIME 2GM/50 ML (PMX) 50 ML IVPB SCH ×2 (09:00→20:30)
[2016-12-03] MEDS: FAMOTIDINE 20 MG INJ IV SCH (09:00)
[2016-12-03] MEDS: MULTIVITAMINS 10 ML, THIAMINE 100 MG in SOD CHLORIDE 0.9% 1,000 ML IVPB SCH (09:01)
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
[2016-12-03 09:02] LABS: AADO2 Arterial 382.2 mmHg (7.0-24.0); Allen Test ACCEPTAB; Arterial Base Excess 0.6 mmol/L (-3.0-3); Arterial COHb 0.3 % (0.0-3.0); Arterial Fraction of Oxyhgb 90.9 % (93.0-99.0); Arterial HCO3 26.8 mmol/L (22.0-26.0); Arterial MetHb 0.1 % (0.0-1.5); Arterial Total Hemglobin 12.6 g/dl (12.0-18.0); MODE VENT - AC
[2016-12-03] MEDS: LORAZEPAM 2 MG INJ IV PRN (10:00)
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
[2016-12-03] MEDS: FUROSEMIDE 40 MG INJ IV SCH (11:24)
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
[2016-12-03] MEDS ORDERED: VANCOMYCIN 750 MG in DEXTROSE 5% 150 ML IVPB SCH (17:00)
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
[2016-12-03 23:49] LABS: AADO2 Arterial 582.1 mmHg (7.0-24.0); Allen Test ACCEPTAB; Arterial Base Excess 4.4 mmol/L (-3.0-3); Arterial COHb 0.2 % (0.0-3.0); Arterial HCO3 30.6 mmol/L (22.0-26.0); Arterial MetHb 0.4 % (0.0-1.5); Arterial Total Hemglobin 11.8 g/dl (12.0-18.0); MODE VENT - AC
[2016-12-04] VITALS (53 sets, daily range): BP systolic 103–137; BP diastolic 57–91; PULSE 40–94; RESP 16–22
[2016-12-04] MEDS: MIDAZOLAM (DRIP) 50 mg/50 mL 50 ML IV SCH ×5 (00:07→20:54)
[2016-12-04] MEDS: FAMOTIDINE 20 MG INJ IV SCH ×3 (00:07→20:48)
[2016-12-04] MEDS: LORAZEPAM 2 MG INJ IV PRN ×3 (01:56→09:54)
[2016-12-04] MEDS: VASOPRESSIN 60 UNIT in DEXTROSE 5% 57 ML IV SCH ×2 (01:57→14:28)
[2016-12-04] MEDS: VANCOMYCIN 1 GM in NS 250 ML IVPB SCH ×3 (02:00→18:08)
[2016-12-04] MEDS: D5W-0.45 NACL + KCL 10 MEQ 1,000 ML IV SCH (03:01)
[2016-12-04] MEDS: PROPOFOL 100 ML IV SCH ×3 (03:01→20:48)
[2016-12-04] MEDS: FENTAnyl (DRIP) 1000 mcg/100mL 100 ML IV SCH ×2 (04:00→13:17)
[2016-12-04] MEDS: FUROSEMIDE 40 MG INJ IV SCH (05:00)
[2016-12-04 05:14] LABS: ABNORMAL IP MESSAGE 1; BASOPHILS % 0.1 % (0.0-2.0); HEMATOCRIT 32.6 % (42.0-52.0); HEMOGLOBIN 10.3 g/dl (14.0-18.0); LYMPHOCYTES # 0.7 10^3/ul (0.8-2.9); LYMPHOCYTES % 3.4 % (15.0-51.0); MEAN CORPUSCULAR HEMOGLOBIN 27.9 pg (29.0-33.0); MEAN CORPUSCULAR HGB CONC 31.6 g/dl (32.0-37.0); MEAN CORPUSCULAR VOLUME 88.3 fl (82.0-101.0); MEAN PLATELET VOLUME 11.7 fl (7.4-10.4); MONOCYTE # 0.5 10^3/ul (0.3-0.9); MONOCYTES % 2.8 % (0.0-11.0); NEUTROPHIL # 17.4 10^3/ul (1.6-7.5); NEUTROPHILS % 92.2 % (39.0-77.0); NUCLEATED RED BLOOD CELLS% 0.1 /100WBC (0.0-0.0); PLATELET COUNT 95 10^3/UL (140-415); POSITIVE DIFF @See below; RED BLOOD COUNT 3.69 10^6/ul (4.70-6.10); RED CELL DISTRIBUTION WIDTH 14.1 % (11.5-14.5); WHITE BLOOD COUNT 18.9 10^3/ul (4.8-10.8)
[2016-12-04] MEDS: METHYLPREDNISOLONE 40 MG INJ IV SCH ×2 (08:12→20:48)
[2016-12-04] MEDS: CEFEPIME 2GM/50 ML (PMX) 50 ML IVPB SCH ×2 (08:14→21:00)
[2016-12-04] MEDS: MULTIVITAMINS 10 ML, THIAMINE 100 MG in SOD CHLORIDE 0.9% 1,000 ML IVPB SCH (08:14)
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
[2016-12-04 15:53] LABS: ALBUMIN 3.5 g/dl (3.3-4.9); ALBUMIN/GLOBULIN RATIO 1.59; BILIRUBIN,INDIRECT 0.2 mg/dl (0-1.1); BILIRUBIN,TOTAL 0.2 mg/dl (0.2-1.3); CALCIUM 7.8 mg/dl (8.4-10.2); CREATININE 0.82 mg/dl (0.61-1.24); POTASSIUM 3.9 mmol/L (3.5-5.1); TOTAL PROTEIN 5.7 g/dl (6.1-8.1)
--- NOTE | 2016-12-04 18:09 | CONS ---
Date/Time of Note Date/Time of Note DATE: 12/04/16 TIME: 18:07 Assessment/Plan Assessment/Plan Chief Complaint/Hosp Course Assessment: NSTEMI - likely due to cardiac arrest and CPR Acute systolic heart failure - LVEF 20% Status post PEA cardiac arrest Shock - resolved and off pressors Acute encephalopathy - possible traumatic brain injury, mental status improving Acute hypoxic respiratory failure - intubated and on mechanical ventilation Acute kidney injury - improving Shock liver Recommendations: -continue Lasix 40mg IV daily -will repeat echocardiogram in a few days to evaluate for recovery of left ventricular systolic function Problems: Consultation Date/Type/Reason Admit Date/Time Nov 30, 2016 at 21:17 Initial Consult Date 12/01/16 Type of Consultation: Cardiology 24 HR Interval Summary Free Text/Dictation Noted to be hypoxic with increasing FiO2 requirements. Has been started on diuretics. Detailed Summary Additional Comments Unable to obtain review of systems, patient is intubated. Exam/Review of Systems Vital Signs Vitals Vital Signs Date Time Temp Pulse Resp B/P Pulse Ox O2 Delivery O2 Flow Rate FiO2 12/04/16 17:05 45 16 97 60 12/04/16 17:00 115/67 Mechanical Ventilator 12/04/16 16:00 98.7 11/30/16 20:23 15.0 Intake and Output 12/03/16 12/03/16 12/04/16 15:00 23:00 07:00 Intake Total 1730 ml 1540 ml 1696.8 ml Output Total 3425 ml 500 ml 1350 ml Balance -1695 ml 1040 ml 346.8 ml Exam Constitutional: non-verbal, No alert Psych: No nl mood/affect, No no complaints Head: lacerations (forehead) Eyes: nl conjunctiva, nl lids ENMT: nl external ears & nose, nl nasal mucosa & septum Respiratory: diminished breath sounds, No wheezing Cardiovascular: No murmurs/extra sounds, No regular rate and rhythm Gastrointestinal: soft, No distended Musculoskeletal: nl extremities to inspection Extremities: No clubbing, No cyanosis, No edema Neurological: No nl mental status, No nl speech Skin: laceration Results Result Diagram: 12/04/16 0450 12/04/16 1529 Results 24 hrs Laboratory Tests Test 12/03/16 23:26 12/04/16 04:50 12/04/16 09:10 12/04/16 15:29 Blood Gas Specimen Source Blood arterial Arterial Blood Date Drawn 12/03/2016 11:38:48 PM Arterial Blood pH (Temp corrected) 7.378 Arterial Blood pCO2 (Temp correct) 53.1 H Arterial Blood pO2 (Temp corrected) 77.8 L Arterial Blood HCO3 30.6 H Arterial Blood Base Excess 4.4 H Arterial Blood Oxygen Saturation 94.6 L Otto Test ACCEPTAB Arterial Blood Gas Puncture Site Left Radial Arterial Blood Carboxyhemoglobin 0.2 Arterial Blood Methemoglobin 0.4 Blood Gas A-a O2 Differential 582.1 H Oxyhemoglobin Percent 94.0 Total Hemoglobin 11.8 L Blood Gas Temperature 37.0 Blood Gas Respiration Rate 16.0 Blood Gas Actual Respiration Rate 16 Blood Gas Modality VENT - AC FiO2 100.0 Blood Gas Tidal Volume 450.0 Blood Gas Low PEEP Setting 5.0 Blood Gas Inspiratory Pressure 23.0 Blood Gas Notified Whom KM Blood Gas Notified Time 12/03/2016 11:48:52 PM White Blood Count 18.9 H Red Blood Count 3.69 L Hemoglobin 10.3 L Hematocrit 32.6 L Mean Corpuscular Volume 88.3 Mean Corpuscular Hemoglobin 27.9 L Mean Corpuscular Hemoglobin Concent 31.6 L Red Cell Distribution Width 14.1 Platelet Count 95 L Mean Platelet Volume 11.7 H Neutrophils % 92.2 H Lymphocytes % 3.4 L Monocytes % 2.8 Eosinophils % 0.0 Basophils % 0.1 Nucleated Red Blood Cells % 0.1 H Neutrophils # 17.4 H Lymphocytes # 0.7 L Monocytes # 0.5 Eosinophils # 0.0 Basophils # 0.0 Nucleated Red Blood Cells # 0.0 Creatine Kinase 13159 #H Vancomycin Level Trough 14.5 Sodium Level 144 Potassium Level 3.9 Chloride Level 102 Carbon Dioxide Level 33 H Anion Gap 13 Blood Urea Nitrogen 18 Creatinine 0.82 Glucose Level 139 Calcium Level 7.8 L Total Bilirubin 0.2 Direct Bilirubin 0.00 Indirect Bilirubin 0.2 Aspartate Amino Transf (AST/SGOT) 598 H Alanine Aminotransferase (ALT/SGPT) 1247 H Alkaline Phosphatase 55 Total Protein 5.7 L Albumin 3.5 Globulin 2.20 Albumin/Globulin Ratio 1.59 Medications Medications Current Medications Acetaminophen (Tylenol Supp) 650 mg Q4H PRN [place] PAIN LEVEL 1-3 OR FEVER; Start 11/30/16 at 21:30 Morphine Sulfate (morphine) 2 mg Q4H PRN IV PAIN LEVEL 7-10 Last administered on 12/01/16 16:08; Admin Dose 2 MG; Start 11/30/16 at 21:30 Lorazepam 1 mg 1 mg Q2H PRN IV ANXIETY Last administered on 12/04/16 09:54; Admin Dose 1 MG; Start 11/30/16 at 21:30 Norepinephrine 16 mg/Dextrose 500 ml @ 1.87 mls/hr TITRATE IV Last administered on 12/01/16 22:52; Admin Dose 15 MLS/HR; Start 12/01/16 at 10:00 Midazolam HCl 50 ml @ 1 mls/hr TITRATE IV Last administered on 12/04/16 15:38 ; Admin Dose 10 MLS/HR; Start 12/01/16 at 04:00 Fentanyl 100 ml @ 2.5 mls/hr TITRATE IV Last administered on 12/04/16 13:17 ; Admin Dose 10 MLS/HR; Start 12/01/16 at 04:00 Phenylephrine HCl/ Dextrose (Roland-Syneph/D5W) 500 ml @ 75 mls/hr TITRATE IV Last administered on 12/02/16 01:28; Admin Dose 15 MLS/HR; Start 12/01/16 at 10:00 Lorazepam 1 mg 1 mg Q1H PRN IV CONTROL WITHDRAWAL SYMPTOMS; Start 12/01/16 at 09:30 Vasopressin 60 unit/Dextrose 60 ml @ 2.4 mls/hr Q12H IV ; Start 12/01/16 at 15 :30; Stop 12/06/16 at 15:29 Cefepime HCl (Maxipime 2gm/50 ml (Pmx)) 50 ml @ 100 mls/hr Q12 IVPB Last administered on 12/04/16 08:14; Admin Dose 100 MLS/HR; Start 12/01/16 at 15: 30 Famotidine 20 mg 20 mg BID IV Last administered on 12/04/16 08:12; Admin Dose 20 MG; Start 12/02/16 at 21:00 Vancomycin HCl (Vancocin) 250 ml @ 125 mls/hr Q8H IVPB Last administered on 09:54; Admin Dose 125 MLS/HR; Start 12/03/16 at 02:30 Furosemide (Lasix) 40 mg DAILY@06 IV Last administered on 12/04/16 05:00; Admin Dose 40 MG; Start 12/03/16 at 11:30 Methylprednisolone Sodium Succinate (Solu-Medrol) 40 mg Q12 IV Last administered on 12/04/16 08:12; Admin Dose 40 MG; Start 12/03/16 at 21:00 RAYNA ROJAS MD Dec 04, 2016 18:08
[2016-12-04] MEDS: METOCLOPRAMIDE 10 MG INJ IV SCH (22:21)
[2016-12-04] MEDS: FENTAnyl 1,000 MCG in DEXTROSE 5% 80 ML IV SCH (23:38)
[2016-12-05] VITALS (60 sets, daily range): BP systolic 102–145; BP diastolic 65–99; PULSE 37–100; RESP 0–33
[2016-12-05] MEDS: MIDAZOLAM (DRIP) 50 mg/50 mL 50 ML IV SCH ×5 (01:03→23:51)
[2016-12-05] MEDS: VANCOMYCIN 1 GM in NS 250 ML IVPB SCH ×3 (02:34→18:45)
[2016-12-05] MEDS ORDERED: ARTIFICIAL TEARS 15 ML OPH BOTH EYES PRN (03:30)
[2016-12-05] MEDS: VASOPRESSIN 60 UNIT in DEXTROSE 5% 57 ML IV SCH ×2 (03:30→15:14)
[2016-12-05] MEDS ORDERED: morphine (DRIP) 100 MG/100 ML 100 ML IV SCH (03:30)
[2016-12-05] MEDS ORDERED: DIMETHICONE STICK TOP PRN (03:30)
[2016-12-05] MEDS ORDERED: PENDING SANTYL ORDER FOR WOUND CARE XX PRN (03:30)
--- NOTE | 2016-12-05 05:25 | RADRPT ---
PROCEDURE: XR Chest. CLINICAL INDICATION: Pneumonia TECHNIQUE: A single AP view of the chest was obtained. COMPARISON: None. FINDINGS: The endotracheal tube tip is approximately 2.0 cm above the yazmin. The tip of the enteric tube is in the region of the gastric pylorus. There is a right upper extremity PICC line with tip near the cavoatrial junction. There are diffuse bilateral alveolar opacities. No pleural effusion or pneumothorax is seen. The ca rdiomediastinal silhouette is within normal limits for size. The osseous structures are unremarkabl e. IMPRESSION: 1. Diffuse bilateral alveolar opacities, may reflect pulmonary edema or multifocal pneumonia. 2. Tubes and lines, as described above. The nasogastric tube tip is in the region of the gastric py lorus. Retracting by 5-6 cm is recommended. RPTAT: HH .Yessenia Piper MD, Date Time Electronically viewed and signed by .Yessenia Piper MD, on 12/05/2016 05:25 .G/
[2016-12-05] MEDS: FUROSEMIDE 40 MG INJ IV SCH (05:33)
[2016-12-05] MEDS: METOCLOPRAMIDE 10 MG INJ IV SCH (05:34)
[2016-12-05 05:36] LABS: BASOPHIL # 0.1 10^3/ul (0.0-0.1); BASOPHILS % 0.3 % (0.0-2.0); HEMATOCRIT 33.2 % (42.0-52.0); HEMOGLOBIN 10.7 g/dl (14.0-18.0); LYMPHOCYTES # 0.7 10^3/ul (0.8-2.9); LYMPHOCYTES % 4.5 % (15.0-51.0); MEAN CORPUSCULAR HEMOGLOBIN 28.5 pg (29.0-33.0); MEAN CORPUSCULAR HGB CONC 32.2 g/dl (32.0-37.0); MEAN CORPUSCULAR VOLUME 88.3 fl (82.0-101.0); MEAN PLATELET VOLUME 11.4 fl (7.4-10.4); MONOCYTE # 0.8 10^3/ul (0.3-0.9); MONOCYTES % 4.6 % (0.0-11.0); NEUTROPHIL # 14.7 10^3/ul (1.6-7.5); NEUTROPHILS % 88.7 % (39.0-77.0); NUCLEATED RED BLOOD CELLS% 0.1 /100WBC (0.0-0.0); PLATELET COUNT 125 10^3/UL (140-415); RED BLOOD COUNT 3.76 10^6/ul (4.70-6.10); RED CELL DISTRIBUTION WIDTH 13.8 % (11.5-14.5); WHITE BLOOD COUNT 16.6 10^3/ul (4.8-10.8)
[2016-12-05 05:56] LABS: ALBUMIN 2.8 g/dl (3.3-4.9); ALBUMIN/GLOBULIN RATIO 1.03; BILIRUBIN,INDIRECT 0.2 mg/dl (0-1.1); BILIRUBIN,TOTAL 0.2 mg/dl (0.2-1.3); CALCIUM 8.2 mg/dl (8.4-10.2); CREATININE 0.81 mg/dl (0.61-1.24); POTASSIUM 4.2 mmol/L (3.5-5.1); TOTAL PROTEIN 5.5 g/dl (6.1-8.1)
[2016-12-05] MEDS: LORAZEPAM 2 MG INJ IV PRN (06:32)
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
--- NOTE | 2016-12-05 07:15 | CONS ---
Date/Time of Note Date/Time of Note DATE: 12/05/16 TIME: 07:11 Assessment/Plan Assessment/Plan Chief Complaint/Hosp Course Currently on fentanyl propofol and Versed remains very agitated. Currently bradycardic into the 40s her blood pressure remained stable. The bradycardia is unusual for sedatives or opioids. We will continue with current medication for symptom control. Another meeting will be scheduled with family members. Problems: Consultation Date/Type/Reason Admit Date/Time Nov 30, 2016 at 21:17 Initial Consult Date 12/01/16 Type of Consultation: Pain management Exam/Review of Systems Vital Signs Vitals Vital Signs Date Time Temp Pulse Resp B/P Pulse Ox O2 Delivery O2 Flow Rate FiO2 12/05/16 06:30 57 21 142/84 Mechanical Ventilator 12/05/16 06:00 99 12/05/16 05:18 60 12/05/16 04:30 98.9 Intake and Output 12/04/16 12/04/16 12/05/16 15:00 23:00 07:00 Intake Total 1308.6 ml 793.6 ml 400.8 ml Output Total 775 ml 500 ml 825 ml Balance 533.6 ml 293.6 ml -424.2 ml Exam Constitutional: other (Intubated, agitated) Respiratory: clear to auscultation, normal air movement Cardiovascular: nl pulses, regular rate and rhythm Neurological: other (Sedated) Results Result Diagram: 12/05/16 0435 12/05/16 0435 Results 24 hrs Laboratory Tests Test 12/04/16 09:10 12/04/16 15:29 12/05/16 04:35 Vancomycin Level Trough 14.5 Sodium Level 144 143 Potassium Level 3.9 4.2 Chloride Level 102 105 Carbon Dioxide Level 33 H 36 H Anion Gap 13 6 L Blood Urea Nitrogen 18 19 Creatinine 0.82 0.81 Glucose Level 139 111 Calcium Level 7.8 L 8.2 L Total Bilirubin 0.2 0.2 Direct Bilirubin 0.00 0.00 Indirect Bilirubin 0.2 0.2 Aspartate Amino Transf (AST/SGOT) 598 H 310 H Alanine Aminotransferase (ALT/SGPT) 1247 H 998 H Alkaline Phosphatase 55 56 Total Protein 5.7 L 5.5 L Albumin 3.5 2.8 L Globulin 2.20 2.70 Albumin/Globulin Ratio 1.59 1.03 White Blood Count 16.6 H Red Blood Count 3.76 L Hemoglobin 10.7 L Hematocrit 33.2 L Mean Corpuscular Volume 88.3 Mean Corpuscular Hemoglobin 28.5 L Mean Corpuscular Hemoglobin Concent 32.2 Red Cell Distribution Width 13.8 Platelet Count 125 #L Mean Platelet Volume 11.4 H Neutrophils % 88.7 H Lymphocytes % 4.5 L Monocytes % 4.6 Eosinophils % 0.0 Basophils % 0.3 Nucleated Red Blood Cells % 0.1 H Neutrophils # 14.7 H Lymphocytes # 0.7 L Monocytes # 0.8 Eosinophils # 0.0 Basophils # 0.1 Nucleated Red Blood Cells # 0.0 Medications Medications Current Medications Acetaminophen (Tylenol Supp) 650 mg Q4H PRN [place] PAIN LEVEL 1-3 OR FEVER; Start 11/30/16 at 21:30 Morphine Sulfate (morphine) 2 mg Q4H PRN IV PAIN LEVEL 7-10 Last administered on 12/01/16 16:08; Admin Dose 2 MG; Start 11/30/16 at 21:30 Lorazepam 1 mg 1 mg Q2H PRN IV ANXIETY Last administered on 12/05/16 06:32; Admin Dose 1 MG; Start 11/30/16 at 21:30 Norepinephrine 16 mg/Dextrose 500 ml @ 1.87 mls/hr TITRATE IV Last administered on 12/01/16 22:52; Admin Dose 15 MLS/HR; Start 12/01/16 at 10:00 Midazolam HCl 50 ml @ 1 mls/hr TITRATE IV Last administered on 12/05/16 06:58 ; Admin Dose 10 MLS/HR; Start 12/01/16 at 04:00 Phenylephrine HCl/ Dextrose (Roland-Syneph/D5W) 500 ml @ 75 mls/hr TITRATE IV Last administered on 12/02/16 01:28; Admin Dose 15 MLS/HR; Start 12/01/16 at 10:00 Lorazepam 1 mg 1 mg Q1H PRN IV CONTROL WITHDRAWAL SYMPTOMS; Start 12/01/16 at 09:30 Vasopressin 60 unit/Dextrose 60 ml @ 2.4 mls/hr Q12H IV ; Start 12/01/16 at 15 :30; Stop 12/06/16 at 15:29 Cefepime HCl (Maxipime 2gm/50 ml (Pmx)) 50 ml @ 100 mls/hr Q12 IVPB Last administered on 12/04/16 21:00; Admin Dose 100 MLS/HR; Start 12/01/16 at 15: 30 Famotidine 20 mg 20 mg BID IV Last administered on 12/04/16 20:48; Admin Dose 20 MG; Start 12/02/16 at 21:00 Vancomycin HCl (Vancocin) 250 ml @ 125 mls/hr Q8H IVPB Last administered on 02:34; Admin Dose 125 MLS/HR; Start 12/03/16 at 02:30 Furosemide (Lasix) 40 mg DAILY@06 IV Last administered on 12/05/16 05:33; Admin Dose 40 MG; Start 12/03/16 at 11:30 Methylprednisolone Sodium Succinate (Solu-Medrol) 40 mg Q12 IV Last administered on 12/04/16 20:48; Admin Dose 40 MG; Start 12/03/16 at 21:00 Metoclopramide HCl 5 mg 5 mg Q8 IV Last administered on 12/05/16 05:34; Admin Dose 5 MG; Start 12/04/16 at 22:00 Fentanyl/Dextrose (D5W) 100 ml @ 2.5 mls/hr TITRATE IV Last administered on 23:38; Admin Dose 10 MLS/HR; Start 12/04/16 at 19:30 Miscellaneous Information (Pending [facility] Order For Wound Care) This patient tony... PRN PRN XX WOUND CARE; Start 12/05/16 at 03:30 JORJE HERNANDEZ Dec 05, 2016 07:15
--- NOTE | 2016-12-05 07:20 | CONS ---
Date/Time of Note Date/Time of Note DATE: 12/05/16 TIME: 07:19 Consult Date/Type/Reason Admit Date/Time Nov 30, 2016 at 21:17 Initial Consult Date 12/01/16 Type of Consultation: Pain management Objective Vital Signs Date Time Temp Pulse Resp B/P Pulse Ox O2 Delivery O2 Flow Rate FiO2 12/05/16 06:30 57 21 142/84 Mechanical Ventilator 12/05/16 06:00 99 12/05/16 05:18 60 12/05/16 04:30 98.9 Intake and Output 12/04/16 12/04/16 12/05/16 15:00 23:00 07:00 Intake Total 1308.6 ml 793.6 ml 400.8 ml Output Total 775 ml 500 ml 825 ml Balance 533.6 ml 293.6 ml -424.2 ml Results/Medications Result Diagram: 12/05/16 0435 12/05/16 0435 Results 24 hrs Laboratory Tests Test 12/04/16 09:10 12/04/16 15:29 12/05/16 04:35 Vancomycin Level Trough 14.5 Sodium Level 144 143 Potassium Level 3.9 4.2 Chloride Level 102 105 Carbon Dioxide Level 33 H 36 H Anion Gap 13 6 L Blood Urea Nitrogen 18 19 Creatinine 0.82 0.81 Glucose Level 139 111 Calcium Level 7.8 L 8.2 L Total Bilirubin 0.2 0.2 Direct Bilirubin 0.00 0.00 Indirect Bilirubin 0.2 0.2 Aspartate Amino Transf (AST/SGOT) 598 H 310 H Alanine Aminotransferase (ALT/SGPT) 1247 H 998 H Alkaline Phosphatase 55 56 Total Protein 5.7 L 5.5 L Albumin 3.5 2.8 L Globulin 2.20 2.70 Albumin/Globulin Ratio 1.59 1.03 White Blood Count 16.6 H Red Blood Count 3.76 L Hemoglobin 10.7 L Hematocrit 33.2 L Mean Corpuscular Volume 88.3 Mean Corpuscular Hemoglobin 28.5 L Mean Corpuscular Hemoglobin Concent 32.2 Red Cell Distribution Width 13.8 Platelet Count 125 #L Mean Platelet Volume 11.4 H Neutrophils % 88.7 H Lymphocytes % 4.5 L Monocytes % 4.6 Eosinophils % 0.0 Basophils % 0.3 Nucleated Red Blood Cells % 0.1 H Neutrophils # 14.7 H Lymphocytes # 0.7 L Monocytes # 0.8 Eosinophils # 0.0 Basophils # 0.1 Nucleated Red Blood Cells # 0.0 Medications Current Medications Acetaminophen (Tylenol Supp) 650 mg Q4H PRN [place] PAIN LEVEL 1-3 OR FEVER; Start 11/30/16 at 21:30 Morphine Sulfate (morphine) 2 mg Q4H PRN IV PAIN LEVEL 7-10 Last administered on 12/01/16 16:08; Admin Dose 2 MG; Start 11/30/16 at 21:30 Lorazepam 1 mg 1 mg Q2H PRN IV ANXIETY Last administered on 12/05/16 06:32; Admin Dose 1 MG; Start 11/30/16 at 21:30 Norepinephrine 16 mg/Dextrose 500 ml @ 1.87 mls/hr TITRATE IV Last administered on 12/01/16 22:52; Admin Dose 15 MLS/HR; Start 12/01/16 at 10:00 Midazolam HCl 50 ml @ 1 mls/hr TITRATE IV Last administered on 12/05/16 06:58 ; Admin Dose 10 MLS/HR; Start 12/01/16 at 04:00 Phenylephrine HCl/ Dextrose (Roland-Syneph/D5W) 500 ml @ 75 mls/hr TITRATE IV Last administered on 12/02/16 01:28; Admin Dose 15 MLS/HR; Start 12/01/16 at 10:00 Lorazepam 1 mg 1 mg Q1H PRN IV CONTROL WITHDRAWAL SYMPTOMS; Start 12/01/16 at 09:30 Vasopressin 60 unit/Dextrose 60 ml @ 2.4 mls/hr Q12H IV ; Start 12/01/16 at 15 :30; Stop 12/06/16 at 15:29 Cefepime HCl (Maxipime 2gm/50 ml (Pmx)) 50 ml @ 100 mls/hr Q12 IVPB Last administered on 12/04/16 21:00; Admin Dose 100 MLS/HR; Start 12/01/16 at 15: 30 Famotidine 20 mg 20 mg BID IV Last administered on 12/04/16 20:48; Admin Dose 20 MG; Start 12/02/16 at 21:00 Vancomycin HCl (Vancocin) 250 ml @ 125 mls/hr Q8H IVPB Last administered on 02:34; Admin Dose 125 MLS/HR; Start 12/03/16 at 02:30 Furosemide (Lasix) 40 mg DAILY@06 IV Last administered on 12/05/16 05:33; Admin Dose 40 MG; Start 12/03/16 at 11:30 Methylprednisolone Sodium Succinate (Solu-Medrol) 40 mg Q12 IV Last administered on 12/04/16 20:48; Admin Dose 40 MG; Start 12/03/16 at 21:00 Metoclopramide HCl 5 mg 5 mg Q8 IV Last administered on 12/05/16 05:34; Admin Dose 5 MG; Start 12/04/16 at 22:00 Fentanyl/Dextrose (D5W) 100 ml @ 2.5 mls/hr TITRATE IV Last administered on 23:38; Admin Dose 10 MLS/HR; Start 12/04/16 at 19:30 Miscellaneous Information (Pending [facility] Order For Wound Care) This patient tony... PRN PRN XX WOUND CARE; Start 12/05/16 at 03:30 Assessment/Plan Chief Complaint/Hosp Course Reviewed patient's medication combination of the opioids and benzodiazepines may be contributed to his significant bradycardia. Lungs patient's blood pressure is stable will not back off on the fentanyl at this time or propofol. Problems: JORJE HERNANDEZ Dec 05, 2016 07:20
[2016-12-05] MEDS ORDERED: HYDROmorphONE 0.2 MG/ML PCA IV SCH ×2 (08:00→09:00)
[2016-12-05 08:18] LABS: AADO2 Arterial 157.3 mmHg (7.0-24.0); Allen Test ACCEPTAB; Arterial Base Excess 9.3 mmol/L (-3.0-3); Arterial COHb 0.3 % (0.0-3.0); Arterial Fraction of Oxyhgb 98.5 % (93.0-99.0); Arterial HCO3 32.4 mmol/L (22.0-26.0); Arterial MetHb 0.5 % (0.0-1.5); Arterial Total Hemglobin 13.1 g/dl (12.0-18.0); MODE VENT - AC
[2016-12-05] MEDS ORDERED: HYDROmorphONE 0.5 MG/0.5 ML SYG IV PRN (09:00)
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
[2016-12-05] MEDS: CEFEPIME 2GM/50 ML (PMX) 50 ML IVPB SCH ×2 (09:28→21:28)
[2016-12-05] MEDS: METHYLPREDNISOLONE 40 MG INJ IV SCH (09:28)
[2016-12-05] MEDS: FAMOTIDINE 20 MG INJ IV SCH (09:36)
[2016-12-05] MEDS: FENTAnyl 1,000 MCG in DEXTROSE 5% 80 ML IV SCH (11:03)
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
[2016-12-05] MEDS: FAMOTIDINE 20 MG TAB GTB SCH (21:27)
[2016-12-05] MEDS: morphine 2 MG INJ IV PRN (23:51)
[2016-12-06] VITALS (40 sets, daily range): BP systolic 106–142; BP diastolic 62–117; PULSE 39–108; RESP 0–32
[2016-12-06] MEDS: VASOPRESSIN 60 UNIT in DEXTROSE 5% 57 ML IV SCH (03:30)
[2016-12-06] MEDS: VANCOMYCIN 1 GM in NS 250 ML IVPB SCH ×2 (03:53→10:53)
[2016-12-06] MEDS: morphine 2 MG INJ IV PRN (04:44)
[2016-12-06] MEDS: FUROSEMIDE 20 MG INJ IV SCH (05:43)
[2016-12-06] MEDS: FENTAnyl 1,000 MCG in DEXTROSE 5% 80 ML IV SCH (05:49)
[2016-12-06 06:39] LABS: ABNORMAL IP MESSAGE 1; HEMATOCRIT 35.2 % (42.0-52.0); HEMOGLOBIN 11.3 g/dl (14.0-18.0); MEAN CORPUSCULAR HEMOGLOBIN 27.5 pg (29.0-33.0); MEAN CORPUSCULAR HGB CONC 32.1 g/dl (32.0-37.0); MEAN CORPUSCULAR VOLUME 85.6 fl (82.0-101.0); MEAN PLATELET VOLUME 10.6 fl (7.4-10.4); PLATELET COUNT 160 10^3/UL (140-415); POSITIVE DIFF @See below; RED BLOOD COUNT 4.11 10^6/ul (4.70-6.10); RED CELL DISTRIBUTION WIDTH 13.7 % (11.5-14.5); WHITE BLOOD COUNT 15.2 10^3/ul (4.8-10.8)
[2016-12-06 07:14] LABS: CALCIUM 8.2 mg/dl (8.4-10.2); CREATININE 0.76 mg/dl (0.61-1.24); MAGNESIUM 2.1 mg/dl (1.7-2.5); PHOSPHORUS 2.9 mg/dl (2.5-4.9); POTASSIUM 3.6 mmol/L (3.5-5.1)
[2016-12-06 07:45] LABS: ANISOCYTOSIS 1+ (0-0); ERYTHROBLAST% (NRBC) (M) 1 % (0-0); METAMYELOCYTES %M 2 % (0-0); MICROCYTOSIS 1+ (0-0); MONOCYTES % (M) 8 % (0-11); MYELOCYTES % (M) 2 % (0-0); PLATELET ESTIMATE NORMAL; POLYCHROMASIA 1+ (0-0); PROMYELOCYTES #M 0.1 10^3/ul (0-0); PROMYELOCYTES % (M) 1 % (0-0); REACTIVE LYMPHOCYTES% (M) 2 % (0-0)
[2016-12-06] MEDS ORDERED: morphine 2 MG INJ IV ONE (08:00)
--- NOTE | 2016-12-06 08:45 | RADRPT ---
PROCEDURE: XR Chest. CLINICAL INDICATION: Shortness of breath. TECHNIQUE: Single frontal view. COMPARISON: 12/05/2016. FINDINGS: The endotracheal tube, nasogastric tube, and right subclavian vein catheter remain in satisfactory p osition. Mild bilateral pulmonary air space disease consistent with pulmonary edema is slightly impr robinson. The heart size is normal. There is no pleural effusion. There is no pneumothorax. IMPRESSION: 1. Slightly improved appearance of the lungs. 2. Otherwise unchanged chest radiograph. RPTAT: QQ .Jacky Forte MD, MD Date Time Electronically viewed and signed by .Jacky Forte MD, on 12/06/2016 08:44 .R/
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
[2016-12-06] MEDS ORDERED: METHYLPREDNISOLONE 40 MG INJ IV SCH (09:00)
[2016-12-06] MEDS: FAMOTIDINE 20 MG TAB GTB SCH (09:00)
[2016-12-06] MEDS: CEFEPIME 2GM/50 ML (PMX) 50 ML IVPB SCH ×2 (09:17→21:45)
[2016-12-06 09:29] LABS: AADO2 Arterial 82.8 mmHg (7.0-24.0); Allen Test ACCEPTAB; Arterial Base Excess 6.3 mmol/L (-3.0-3); Arterial COHb 0.2 % (0.0-3.0); Arterial HCO3 31.2 mmol/L (22.0-26.0); Arterial MetHb 0.4 % (0.0-1.5); Arterial Total Hemglobin 14.2 g/dl (12.0-18.0); Blood Gas PS 10; MODE VENT - CPAP
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
--- NOTE | 2016-12-06 15:26 | CONS ---
Date/Time of Note Date/Time of Note DATE: 12/06/16 TIME: 15:25 Assessment/Plan Assessment/Plan Chief Complaint/Hosp Course Reviewed patient's medication combination of the opioids and benzodiazepines may be contributed to his significant bradycardia. Lungs patient's blood pressure is stable will not back off on the fentanyl at this time or propofol. Problems: Additional Assessment/Plan Will dc all sedatives an pain meds Consultation Date/Type/Reason Admit Date/Time Nov 30, 2016 at 21:17 Initial Consult Date 12/01/16 Type of Consultation: pain management Referring Provider: ESME COX MD Exam/Review of Systems Vital Signs Vitals Vital Signs Date Time Temp Pulse Resp B/P Pulse Ox O2 Delivery O2 Flow Rate FiO2 12/06/16 13:00 55 32 126/73 99 Nasal Cannula 12/06/16 12:00 99.6 12/06/16 10:00 2.0 12/06/16 09:08 30 Intake and Output 12/05/16 12/05/16 12/06/16 15:00 23:00 07:00 Intake Total 865.0 ml 844.0 ml 322 ml Output Total 1910 ml 640 ml 875 ml Balance -1045.0 ml 204.0 ml -553 ml Exam Constitutional: other (alert coperative) Neurological: TELEVISION INSPECTOR II-XII intact, nl mental status, nl speech, No DTR's symmetric, No confused, No focal weakness, No lethargic, No nl strength, No numbness, No other, No reflexes, No unresponsive Results Result Diagram: 12/06/16 0540 12/06/16 0540 Results 24 hrs Laboratory Tests Test 12/06/16 01:51 12/06/16 05:40 12/06/16 09:12 12/06/16 10:58 Vancomycin Level Trough 11.1 White Blood Count 15.2 H Red Blood Count 4.11 L Hemoglobin 11.3 L Hematocrit 35.2 L Mean Corpuscular Volume 85.6 Mean Corpuscular Hemoglobin 27.5 L Mean Corpuscular Hemoglobin Concent 32.1 Red Cell Distribution Width 13.7 Platelet Count 160 # Mean Platelet Volume 10.6 H Neutrophils % Segmented Neutrophils % (Manual) 76 Band Neutrophils % (Manual) 5 H Lymphocytes % Lymphocytes % (Manual) 4 L Reactive Lymphocytes % (Manual) 2 H Monocytes % Monocytes % (Manual) 8 Eosinophils % Basophils % Metamyelocytes % (manual) 2 H Myelocytes % (Manual) 2 H Promyelocytes % (Manual) 1 H Nucleated Red Blood Cells % 1 H Neutrophils # Neutrophils # (Manual) 11.7 H Band Neutrophils # 0.7 H Absolute Lymphocytes (Manual) 0.6 L Lymphocytes # Reactive Lymphocytes # 0.3 H Monocytes # Absolute Monocytes (Manual) 1.2 H Eosinophils # Basophils # Metamyelocytes # 0.3 H Myelocytes # 0.3 H Promyelocytes # 0.1 H Nucleated Red Blood Cells # Platelet Estimate NORMAL Polychromasia 1+ Anisocytosis 1+ Microcytosis 1+ Sodium Level 142 Potassium Level 3.6 Chloride Level 103 Carbon Dioxide Level 32 H Anion Gap 11 Blood Urea Nitrogen 24 H Creatinine 0.76 Glucose Level 77 Calcium Level 8.2 L Phosphorus Level 2.9 Magnesium Level 2.1 Creatine Kinase 4803 H Blood Gas Specimen Source Blood arterial Arterial Blood Date Drawn 12/06/2016 9:20:31 AM Arterial Blood pH (Temp corrected) 7.451 H Arterial Blood pCO2 (Temp correct) 45.8 H Arterial Blood pO2 (Temp corrected) 77.3 L Arterial Blood HCO3 31.2 H Arterial Blood Base Excess 6.3 H Arterial Blood Oxygen Saturation 95.6 Otto Test ACCEPTAB Arterial Blood Gas Puncture Site Right Radial Arterial Blood Carboxyhemoglobin 0.2 Arterial Blood Methemoglobin 0.4 Blood Gas A-a O2 Differential 82.8 H Oxyhemoglobin Percent 95.0 Total Hemoglobin 14.2 Blood Gas Temperature 37.0 Blood Gas Actual Respiration Rate 10 Blood Gas Modality VENT - CPAP FiO2 30.0 Blood Gas Low PEEP Setting 5.0 Blood Gas Pressure Support 10 Blood Gas Notified Whom JLD Blood Gas Notified Time 12/06/2016 9:29:12 AM Lab Scanned Report REFERENCE LAB Medications Medications Current Medications Acetaminophen (Tylenol Supp) 650 mg Q4H PRN [place] PAIN LEVEL 1-3 OR FEVER; Start 11/30/16 at 21:30 Morphine Sulfate 2 mg 2 mg Q4H PRN IV PAIN LEVEL 7-10 Last administered on 04:44; Admin Dose 2 MG; Start 11/30/16 at 21:30 Cefepime HCl (Maxipime 2gm/50 ml (Pmx)) 50 ml @ 100 mls/hr Q12 IVPB Last administered on 12/06/16 09:17; Admin Dose 100 MLS/HR; Start 12/01/16 at 15: 30 Miscellaneous Information [facility] This patient tony... PRN PRN XX WOUND CARE; Start 12/05/16 at 03:30 Furosemide (Lasix) 20 mg DAILY@06 IV Last administered on 12/06/16 05:43; Admin Dose 20 MG; Start 12/06/16 at 06:00 JORJE HERNANDEZ Dec 06, 2016 15:26
--- NOTE | 2016-12-06 15:28 | CONS ---
Date/Time of Note Date/Time of Note DATE: 12/06/16 TIME: 15:27 Consult Date/Type/Reason Admit Date/Time Nov 30, 2016 at 21:17 Initial Consult Date 12/01/16 Type of Consultation: pain management Ordering Provider: ESME COX MD Objective Vital Signs Date Time Temp Pulse Resp B/P Pulse Ox O2 Delivery O2 Flow Rate FiO2 12/06/16 13:00 55 32 126/73 99 Nasal Cannula 12/06/16 12:00 99.6 12/06/16 10:00 2.0 12/06/16 09:08 30 Intake and Output 12/05/16 12/05/16 12/06/16 15:00 23:00 07:00 Intake Total 865.0 ml 844.0 ml 322 ml Output Total 1910 ml 640 ml 875 ml Balance -1045.0 ml 204.0 ml -553 ml Results/Medications Result Diagram: 12/06/16 0540 12/06/16 0540 Results 24 hrs Laboratory Tests Test 12/06/16 01:51 12/06/16 05:40 12/06/16 09:12 12/06/16 10:58 Vancomycin Level Trough 11.1 White Blood Count 15.2 H Red Blood Count 4.11 L Hemoglobin 11.3 L Hematocrit 35.2 L Mean Corpuscular Volume 85.6 Mean Corpuscular Hemoglobin 27.5 L Mean Corpuscular Hemoglobin Concent 32.1 Red Cell Distribution Width 13.7 Platelet Count 160 # Mean Platelet Volume 10.6 H Neutrophils % Segmented Neutrophils % (Manual) 76 Band Neutrophils % (Manual) 5 H Lymphocytes % Lymphocytes % (Manual) 4 L Reactive Lymphocytes % (Manual) 2 H Monocytes % Monocytes % (Manual) 8 Eosinophils % Basophils % Metamyelocytes % (manual) 2 H Myelocytes % (Manual) 2 H Promyelocytes % (Manual) 1 H Nucleated Red Blood Cells % 1 H Neutrophils # Neutrophils # (Manual) 11.7 H Band Neutrophils # 0.7 H Absolute Lymphocytes (Manual) 0.6 L Lymphocytes # Reactive Lymphocytes # 0.3 H Monocytes # Absolute Monocytes (Manual) 1.2 H Eosinophils # Basophils # Metamyelocytes # 0.3 H Myelocytes # 0.3 H Promyelocytes # 0.1 H Nucleated Red Blood Cells # Platelet Estimate NORMAL Polychromasia 1+ Anisocytosis 1+ Microcytosis 1+ Sodium Level 142 Potassium Level 3.6 Chloride Level 103 Carbon Dioxide Level 32 H Anion Gap 11 Blood Urea Nitrogen 24 H Creatinine 0.76 Glucose Level 77 Calcium Level 8.2 L Phosphorus Level 2.9 Magnesium Level 2.1 Creatine Kinase 4803 H Blood Gas Specimen Source Blood arterial Arterial Blood Date Drawn 12/06/2016 9:20:31 AM Arterial Blood pH (Temp corrected) 7.451 H Arterial Blood pCO2 (Temp correct) 45.8 H Arterial Blood pO2 (Temp corrected) 77.3 L Arterial Blood HCO3 31.2 H Arterial Blood Base Excess 6.3 H Arterial Blood Oxygen Saturation 95.6 Otto Test ACCEPTAB Arterial Blood Gas Puncture Site Right Radial Arterial Blood Carboxyhemoglobin 0.2 Arterial Blood Methemoglobin 0.4 Blood Gas A-a O2 Differential 82.8 H Oxyhemoglobin Percent 95.0 Total Hemoglobin 14.2 Blood Gas Temperature 37.0 Blood Gas Actual Respiration Rate 10 Blood Gas Modality VENT - CPAP FiO2 30.0 Blood Gas Low PEEP Setting 5.0 Blood Gas Pressure Support 10 Blood Gas Notified Whom JLD Blood Gas Notified Time 12/06/2016 9:29:12 AM Lab Scanned Report REFERENCE LAB Medications Current Medications Acetaminophen (Tylenol Supp) 650 mg Q4H PRN [place] PAIN LEVEL 1-3 OR FEVER; Start 11/30/16 at 21:30 Morphine Sulfate 2 mg 2 mg Q4H PRN IV PAIN LEVEL 7-10 Last administered on 04:44; Admin Dose 2 MG; Start 11/30/16 at 21:30 Cefepime HCl (Maxipime 2gm/50 ml (Pmx)) 50 ml @ 100 mls/hr Q12 IVPB Last administered on 12/06/16 09:17; Admin Dose 100 MLS/HR; Start 12/01/16 at 15: 30 Miscellaneous Information (Pending [facility] Order For Wound Care) This patient tony... PRN PRN XX WOUND CARE; Start 12/05/16 at 03:30 Furosemide (Lasix) 20 mg DAILY@06 IV Last administered on 12/06/16 05:43; Admin Dose 20 MG; Start 12/06/16 at 06:00 Assessment/Plan Chief Complaint/Hosp Course Reviewed patient's medication combination of the opioids and benzodiazepines may be contributed to his significant bradycardia. Lungs patient's blood pressure is stable will not back off on the fentanyl at this time or propofol. Problems: Additional Assessment/Plan Will sign off.. thank you JORJE HERNANDEZ Dec 06, 2016 15:28
--- NOTE | 2016-12-06 16:31 | CONS ---
Date/Time of Note Date/Time of Note DATE: 12/06/16 TIME: 16:29 Assessment/Plan Assessment/Plan Chief Complaint/Hosp Course Assessment: NSTEMI - likely due to cardiac arrest and CPR Acute systolic heart failure - LVEF 20% Status post PEA cardiac arrest - unclear etiology Shock - resolved and off pressors Acute encephalopathy - possible traumatic brain injury, mental status improving Acute hypoxic respiratory failure - improved and extubated Acute kidney injury - improved Shock liver Recommendations: -repeat echocardiogram tomorrow to evaluate for recovery of left ventricular systolic function Problems: Consultation Date/Type/Reason Admit Date/Time Nov 30, 2016 at 21:17 Initial Consult Date 12/01/16 Type of Consultation: Cardiology 24 HR Interval Summary Free Text/Dictation Extubated. Tolerating well. Exam/Review of Systems Vital Signs Vitals Vital Signs Date Time Temp Pulse Resp B/P Pulse Ox O2 Delivery O2 Flow Rate FiO2 12/06/16 13:00 55 32 126/73 99 Nasal Cannula 12/06/16 12:00 99.6 12/06/16 10:00 2.0 12/06/16 09:08 30 Intake and Output 12/05/16 12/05/16 12/06/16 15:00 23:00 07:00 Intake Total 865.0 ml 844.0 ml 322 ml Output Total 1910 ml 640 ml 875 ml Balance -1045.0 ml 204.0 ml -553 ml Exam Constitutional: No acute distress Psych: No nl mood/affect, No no complaints Head: lacerations (forehead) Eyes: nl conjunctiva, nl lids ENMT: nl external ears & nose, nl nasal mucosa & septum Respiratory: diminished breath sounds, No wheezing Cardiovascular: No murmurs/extra sounds, No regular rate and rhythm Gastrointestinal: soft, No distended Musculoskeletal: nl extremities to inspection Extremities: No clubbing, No cyanosis, No edema Neurological: No nl mental status, No nl speech Skin: laceration Results Result Diagram: 12/06/16 0540 12/06/16 0540 Results 24 hrs Laboratory Tests Test 12/06/16 01:51 12/06/16 05:40 12/06/16 09:12 12/06/16 10:58 Vancomycin Level Trough 11.1 White Blood Count 15.2 H Red Blood Count 4.11 L Hemoglobin 11.3 L Hematocrit 35.2 L Mean Corpuscular Volume 85.6 Mean Corpuscular Hemoglobin 27.5 L Mean Corpuscular Hemoglobin Concent 32.1 Red Cell Distribution Width 13.7 Platelet Count 160 # Mean Platelet Volume 10.6 H Neutrophils % Segmented Neutrophils % (Manual) 76 Band Neutrophils % (Manual) 5 H Lymphocytes % Lymphocytes % (Manual) 4 L Reactive Lymphocytes % (Manual) 2 H Monocytes % Monocytes % (Manual) 8 Eosinophils % Basophils % Metamyelocytes % (manual) 2 H Myelocytes % (Manual) 2 H Promyelocytes % (Manual) 1 H Nucleated Red Blood Cells % 1 H Neutrophils # Neutrophils # (Manual) 11.7 H Band Neutrophils # 0.7 H Absolute Lymphocytes (Manual) 0.6 L Lymphocytes # Reactive Lymphocytes # 0.3 H Monocytes # Absolute Monocytes (Manual) 1.2 H Eosinophils # Basophils # Metamyelocytes # 0.3 H Myelocytes # 0.3 H Promyelocytes # 0.1 H Nucleated Red Blood Cells # Platelet Estimate NORMAL Polychromasia 1+ Anisocytosis 1+ Microcytosis 1+ Sodium Level 142 Potassium Level 3.6 Chloride Level 103 Carbon Dioxide Level 32 H Anion Gap 11 Blood Urea Nitrogen 24 H Creatinine 0.76 Glucose Level 77 Calcium Level 8.2 L Phosphorus Level 2.9 Magnesium Level 2.1 Creatine Kinase 4803 H Blood Gas Specimen Source Blood arterial Arterial Blood Date Drawn 12/06/2016 9:20:31 AM Arterial Blood pH (Temp corrected) 7.451 H Arterial Blood pCO2 (Temp correct) 45.8 H Arterial Blood pO2 (Temp corrected) 77.3 L Arterial Blood HCO3 31.2 H Arterial Blood Base Excess 6.3 H Arterial Blood Oxygen Saturation 95.6 Otto Test ACCEPTAB Arterial Blood Gas Puncture Site Right Radial Arterial Blood Carboxyhemoglobin 0.2 Arterial Blood Methemoglobin 0.4 Blood Gas A-a O2 Differential 82.8 H Oxyhemoglobin Percent 95.0 Total Hemoglobin 14.2 Blood Gas Temperature 37.0 Blood Gas Actual Respiration Rate 10 Blood Gas Modality VENT - CPAP FiO2 30.0 Blood Gas Low PEEP Setting 5.0 Blood Gas Pressure Support 10 Blood Gas Notified Whom JLD Blood Gas Notified Time 12/06/2016 9:29:12 AM Lab Scanned Report REFERENCE LAB Medications Medications Current Medications Acetaminophen 650 mg 650 mg Q4H PRN [place] PAIN LEVEL 1-3 OR FEVER; Start at 21:30 Cefepime HCl (Maxipime 2gm/50 ml (Pmx)) 50 ml @ 100 mls/hr Q12 IVPB Last administered on 12/06/16 09:17; Admin Dose 100 MLS/HR; Start 12/01/16 at 15: 30 Miscellaneous Information (Pending [facility] Order For Wound Care) This patient tony... PRN PRN XX WOUND CARE; Start 12/05/16 at 03:30 Furosemide (Lasix) 20 mg DAILY@06 IV Last administered on 12/06/16 05:43; Admin Dose 20 MG; Start 12/06/16 at 06:00 RAYNA ROJAS MD Dec 06, 2016 16:31
--- NOTE | 2016-12-06 20:14 | RADRPT ---
PROCEDURE: CT Brain without contrast. CLINICAL INDICATION: Increasing confusion. TECHNIQUE: A CT of the brain was performed utilizing axial sections from the skull base through th e vertex without contrast. Multiplanar re-formations were generated. Images were reviewed on a high- resolution PACS workstation. CTDIvol: 45.01 mGy. DLP: 720.23 mGy-cm. One or more of the following dose reduction techniques were used: - Automated exposure control. - Adjustment of the mA and/or kV according to patient size. - Use of iterative reconstruction technique. COMPARISON: None available FINDINGS: There is no cerebral volume loss. No hydrocephalus is seen. There is no mass effect. No acute intrac ranial hemorrhage is identified. There is no extra-axial collection. Perez-white matter differentiati on is preserved. There is no significant mucosal disease in the paranasal sinuses. The visualized mastoid air cells are clear. The ossesous structures are unremarkable. The extracranial soft tissues are unremarkable. IMPRESSION: 1. No acute intracranial pathology. RPTAT: HTAR .Julio Dickens MD, Date Time Electronically viewed and signed by .Julio Dickens MD, MD on 12/06/2016 20:14 .R/
[2016-12-07] VITALS (17 sets, daily range): BP systolic 111–140; BP diastolic 65–98; PULSE 47–99; RESP 14–33
[2016-12-07] MEDS ORDERED: ACETAMINOPHEN 500 MG TAB PO PRN (00:30)
[2016-12-07 05:33] LABS: ABNORMAL IP MESSAGE 1; HEMOGLOBIN 12.8 g/dl (14.0-18.0); MEAN CORPUSCULAR HGB CONC 33.7 g/dl (32.0-37.0); MEAN CORPUSCULAR VOLUME 83.2 fl (82.0-101.0); MEAN PLATELET VOLUME 10.1 fl (7.4-10.4); PLATELET COUNT 206 10^3/UL (140-415); POSITIVE DIFF @See below; RED BLOOD COUNT 4.57 10^6/ul (4.70-6.10); RED CELL DISTRIBUTION WIDTH 13.2 % (11.5-14.5); WHITE BLOOD COUNT 12.5 10^3/ul (4.8-10.8)
[2016-12-07 05:55] LABS: CALCIUM 8.8 mg/dl (8.4-10.2); CREATININE 0.78 mg/dl (0.61-1.24); MAGNESIUM 2.1 mg/dl (1.7-2.5); PHOSPHORUS 3.3 mg/dl (2.5-4.9); POTASSIUM 3.1 mmol/L (3.5-5.1)
[2016-12-07 06:09] LABS: ALBUMIN 3.9 g/dl (3.3-4.9); TOTAL PROTEIN 6.1 g/dl (6.1-8.1)
[2016-12-07] MEDS: FUROSEMIDE 20 MG INJ IV SCH (06:47)
[2016-12-07 07:25] LABS: ANISOCYTOSIS 1+ (0-0); METAMYELOCYTES %M 2 % (0-0); MICROCYTOSIS 1+ (0-0); MONOCYTES % (M) 10 % (0-11); MYELOCYTES % (M) 2 % (0-0); PLATELET ESTIMATE NORMAL; REACTIVE LYMPHOCYTES% (M) 3 % (0-0)
[2016-12-07] MEDS: POTASSIUM CHLORIDE 250 ML IVPB SCH ×2 (08:45→13:08)
--- NOTE | 2016-12-07 08:55 | RADRPT ---
PROCEDURE: XR Chest. CLINICAL INDICATION: Pneumonia, CHF TECHNIQUE: AP Portable chest. COMPARISON: CHEST 12/06/2016; CHEST 12/05/2016 FINDINGS: The ET and NG tubes have been removed. Right central line remains in place. The patient rotated to t he left. The cardiomediastinal silhouette is normal. The aorta is normal. There is artifact over the right ch est. No pleural effusion or pneumothorax is seen. The osseous structures are intact. IMPRESSION: Interval removal of the ET and NG tubes. Right central line remain in place. Artifact over the right chest limiting evaluation. Physician Aristeo Date Time Electronically viewed and signed by Physician Aristeo on 12/07/2016 08:55 CS/
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
== END 2016-12-07 17:42 | disposition short-term general hospital (02) | DRG 207 ==
LOC: E/R 19:58 → EDBD 19:58 → ICU 21:17 → MERGE 21:17 → PP2 12-07 15:59
PROVIDERS: ADMIT Internal Medicine; ATTEND Internal Medicine
PROC: 5A1955Z Respiratory Ventilation, Greater than 96 Consecutive Hours (ICD-10-PCS; principal; 2016-11-30)
PROC: 5A12012 Performance of Cardiac Output, Single, Manual (ICD-10-PCS; 2016-11-30)
PROC: 0BH17EZ Insertion of Endotracheal Airway into Trachea, Via Natural or Artificial Opening (ICD-10-PCS; 2016-11-30)
PROC: 5A2204Z Restoration of Cardiac Rhythm, Single (ICD-10-PCS; 2016-11-30)
PROC: 05HY33Z Insertion of Infusion Device into Upper Vein, Percutaneous Approach (ICD-10-PCS; 2016-11-30)
DX: J96.01 Acute respiratory failure with hypoxia (principal); I49.01 Ventricular fibrillation; I21.4 Non-ST elevation (NSTEMI) myocardial infarction; K72.00 Acute and subacute hepatic failure without coma; N17.0 Acute kidney failure with tubular necrosis; E87.2 Acidosis; D69.6 Thrombocytopenia, unspecified; I46.9 Cardiac arrest, cause unspecified; G93.40 Encephalopathy, unspecified; I50.21 Acute systolic (congestive) heart failure; S06.9X Unspecified intracranial injury; R57.9 Shock, unspecified; F10.129 Alcohol abuse with intoxication, unspecified; J80 Acute respiratory distress syndrome; Y00.XXXA Assault by blunt object, initial encounter; Y92.89 Other specified places as the place of occurrence of the external cause; R40.2432 Glasgow coma scale score 3-8, at arrival to emergency department
CPT/HCPCS: 31500; 36415; 36600; 70450; 71010; 71260; 72125; 74177; 76775; 80048; 80053; 80061; 80076; 80202; 80306; 80307; 81003; 82140; 82436; 82550; 82553; 82565; 82570; 82803; 83036; 83605; 83690; 83735; 84100; 84133; 84300; 84443; 84484; 84520; 84560; 85025; 85610; 86635; 86703; 86704; 86709; 86803; 87040; 87070; 87081; 87086; 87340; 89190; 89220; 90471; 90715; 92523; 92526; 92610; 92950; 93005; 93306; 93308; 94002; 94003; 94640; 94770; 96374; 96375; 96376; 97162; 97167; J1940; J0171; J0282; J0692; J2060; J2270; J2370; J2543; J2765; J2920; J3010; J3370; J3411; J3475; J3480; J7030; J7042; J7050; J7060; Q9967